=== PATIENT | female | born 1945 | race Caucasian/White ===

== ENCOUNTER → 2016-06-11 | Outpatient (CLI) | payer MEDICARE, BC ==
--- NOTE | 2016-06-11 13:25 | MM ---
Reason for exam: screening (asymptomatic). Last mammogram was performed 1 year and 5 months ago. History: Patient is postmenopausal. Family history of breast cancer in aunt at age 40. Benign right mammotome panel of the right breast, January 12, 2006. Taking estrogen for 20 years beginning at age 49. Taking progesterone for 20 years beginning at age 49. Physical Findings: A clinical breast exam by your physician is recommended on an annual basis and results should be correlated with mammographic findings. MG Screening Mammo w CAD Bilateral CC and MLO view(s) were taken. Prior study comparison: January 24, 2015, bilateral MG screening mammo w CAD. November 08, 2012, bilateral digital screening mammo w/CAD. The breast tissue is heterogeneously dense. This may lower the sensitivity of mammography. Finding #1: There is a 10 mm indistinct oval mass in the anterior position of the left breast. Finding #2: There are typically benign dystrophic, round calcifications in both breasts. Focal asymmetry right middle depth. ASSESSMENT: Incomplete: need additional imaging evaluation, BI-RAD 0 RECOMMENDATION: Special view mammogram of both breasts. [facility] will attempt to contact patient to return for supplemental views.
--- NOTE | 2016-06-11 19:17 | WWHP ---
DATE OF SERVICE: 06/11/2016 CHIEF COMPLAINT: The patient is here for her routine gynecologic exam and mammogram. HISTORY OF PRESENT ILLNESS: This is a 70-year-old G5, P4-0-1-4 with an LMP of 1994. The patient states it has been about 5 to 6 years since her last Pap smear. She has been taking HRT that has been prescribed by her primary care physician Dr. Centeno. She says she has taken this for about 20 years. She tried to wean off of this in the past but developed hot flashes and depression. The patient states she had a small amount of pink spotting in February of this year. She stopped the HRT for about 2 weeks. The spotting was very brief and light. She states she has not had any bleeding since then. She did resume her HRT. She had a small amount of cramping around the time of the spotting as well. PAST MEDICAL HISTORY: 1. Type 2 diabetes. 2. Chronic hypertension. 3. Arthritis. 4. Asthma. MEDICATIONS: 1. Hydrochlorothiazide 25 mg daily. 2. Losartan 100 mg daily. 3. Estradiol 1 mg daily. 4. Progesterone 2.5 mg daily. 5. She is temporarily taking Augmentin 875 mg b.i.d., which she last took this morning. 6. She also takes many supplements and eojd-stu-imhelvu medications, including probiotics niacin, chromium, cinnamon, zinc, lutein, Cholestoff, magnesium, super vitamin B complex, Osteo Bi-Flex, tumeric, vitamin D3 5000 units daily, Cetirizine 10 mg daily p.r.n., omega-3 supplement, aspirin 81 mg 2 daily, and krill daily. Please see her written medication list for doses. ALLERGIES: BACTRIM and ZESTORETIC. PAST SURGICAL HISTORY: 1. Left hip surgery 2014. 2. Appendectomy 1989. 3. Cholecystectomy 1988. 4. Vein ligation surgery in 1987. 5. Cyst removed from the right breast 1968. 6. Tubal ligation in 1974. 7. Colonoscopy 2013. PAST OB HISTORY: Four vaginal deliveries and one spontaneous . PAST LAW TUTOR HISTORY: She has no history of STDs. She has been menopausal since 1994 and has been on HRT since the late . SOCIAL HISTORY: She quit smoking in 1996. She has about 2 to 3 alcoholic drinks per year and denies drug use. She has been since 1962. She is not sexually active. 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 FAMILY HISTORY: Aunt had breast cancer and another aunt had bowel cancer. Mother had CHF and father had hypertension. REVIEW OF SYSTEMS: She believes she has gained about 25 pounds over the last year. She denies respiratory, cardiac or GI problems. She denies maltreatment or falling. : She denies any significant problems with urinary leakage but states she does get urinary tract infections fairly frequently. PHYSICAL EXAM: Blood pressure 132/78. Height 5 feet 7 inches. Weight 261 pounds. Temperature 96.4, pulse 84. This is a well-developed, heavyset white female who is alert and oriented x3, in no acute distress. HEENT is within normal limits. NECK: Supple without mass or thyromegaly. CHEST AND LUNGS: Clear to auscultation. HEART: Regular rate and rhythm. Breasts are without mass or discharge. Axillary exam is negative for adenopathy. BACK: Negative for CVA tenderness. ABDOMEN: Obese, soft, nontender, without palpable masses. PELVIC EXAM: External genitalia reveals mild atrophy without lesions. Cervix and vagina reveal mild atrophy without lesions. There is no unusual discharge and no blood in the vagina upon initial inspection. A small amount of blood was noted upon doing the endocervical brushing for her Pap smear. There was no active bleeding. There was no cervical motion tenderness. There was no significant prolapse. The uterus is midposition, multiparous, nongravid size and nontender. There are no palpable adnexal masses or tenderness. Rectovaginal exam is negative for mass or tenderness and is negative for occult blood. EXTREMITIES: Nontender. IMPRESSION: 1. A 70-year-old menopausal female, on HRT. 2. Small postmenopausal bleeding episode approximately 3 months ago. PLAN: 1. Pap smear was performed. 2. Self breast examination was discussed. 3. Mammogram will be done today. 4. We had a long discussion regarding her postmenopausal bleeding. I stressed the importance of discontinuing the HRT. 5. The patient will be scheduled for pelvic ultrasound and endometrial biopsy to further evaluate the postmenopausal bleeding. 6. She states she had a normal bone density test done a few years ago. Will plan on repeating this next year. 7. She has not gotten flu shots in the past but states she will probably get one this upcoming fall. 8. She will return in one year and p.r.n.
--- NOTE | 2016-06-16 08:10 | BD ---
EXAMINATION TYPE: MG DEXA axial skeleton. DATE OF EXAM: 06/11/2016 10:02 AM COMPARISON: NONE CLINICAL HISTORY: Height: 5 FT 6 3/4 IN Weight: 258 FRAX RISK QUESTIONS: Alcohol (3 or more units per day): YES Family History (Parent hip fracture): NO Glucocorticoids (More than 3mos): NO (Ex: prednisone, prednisolone, methylprednisolone, dexamethasone, and hydrocortisone). History of Fracture in Adulthood: NO Secondary Osteoporosis: 1. Type 1 Diabetes: NO 2. Hyperthyroidism: NO 3. Menopause before 45: NO 4. Malnutrition: NO 5. Chronic liver disease: NO Rheumatoid Arthritis: NO Current Tobacco Use: NO RISK FACTORS HISTORY OF: Surgery to Spine/Hip(right/left)/Wrist (right/left): LT HIP REPLACEMENT When: 2014 Family History of Osteoporosis: YES Drink Alcohol: YES Active: YES Postmenopausal woman: AGE 49 If Premenopausal, do you have irregular periods: Take estrogen and/or progesterone medications: YES How long: SINCE AGE 49 Lost more than 2 inches in height since high school: YES MEDICATIONS: Additional Medications: LOSARTIN, HYDROCHLOROTHIAZIDE,ESTRACE, PROGESTIN Additional History: EXAM MEASUREMENTS: Bone mineral densitometry was performed using the [employer] System. Bone mineral density as measured about the Lumbar spine is: ----- L1-L4(G/cm2): 1.584 T Score Values are as follows: ----- L2: 1.8 ----- L3: 3.9 ----- L4: 4.5 ----- L1-L4: 3.4 PREV DONE AT [facility] Bone mineral density about the R hip (g/cm2): 1.266 T Score values are as follows: -----R Neck: 1.6 -----R Intertrochanter: 2.9 PREVIOUS DONE AT [facility] IMPRESSION: Normal (Values between +1 and -1 indicate normal bone mass) CHARLES HIPS AND SPINE NOTE: T-SCORE=SD OF THE YOUNG ADULT MEAN.
== END ==
LOC: WWCWWP 08:18
PROVIDERS: ATTEND Obstetrics & Gynecology
DX: Z12.31 Encounter for screening mammogram for malignant neoplasm of breast (principal); Z78.0 Asymptomatic menopausal state
CPT/HCPCS: 77080; G0202

== ENCOUNTER → 2016-06-18 | Outpatient (CLI) | payer MEDICARE, BC ==
--- NOTE | 2016-06-18 19:18 | WWPCN ---
DATE OF PROCEDURE: 06/18/2016 PRE-PROCEDURE DIAGNOSIS: Postmenopausal bleeding. POST-PROCEDURE DIAGNOSIS: Postmenopausal bleeding. PROCEDURE: Endometrial biopsy. SURGEON: Archie Lawton M.D. ANESTHESIA: None. BRIEF DESCRIPTION OF FINDINGS: The uterus is multiparous, nongravid size. The cervix is multiparous. The uterus sounded to 9.5 cm. A small amount of tissue was obtained for pathological examination. BRIEF HISTORY AND INDICATIONS: This was a 70-year-old G5, P4-0-1-4 with a last normal menstrual period of 1994. The patient had been taking HRT prescribed by her primary care physician. She has been on HRT for about 20 years. In February she developed light vaginal spotting, and this stopped after she discontinued the HRT. She resumed HRT after 2 weeks. She has not had any bleeding since February. PROCEDURE: The endometrial biopsy procedure as well as possible risks and complications with the procedure were reviewed with the patient. All of her questions were answered. The patient was placed in the lithotomy position. Bimanual examination revealed a multiparous uterus and there were no palpable adnexal masses or tenderness. Speculum was inserted into the vagina. The cervix appeared normal. Betadine was used to prep the cervix and vagina. The endometrial biopsy instrument was placed to the fundus and measured 9.5 cm. Insertion was uncomplicated. Negative pressure was applied and back and forth rotating motion was used. A small amount of tissue was obtained and sent for pathological examination. The patient tolerated the procedure well. The estimated blood loss was less than 1 mL. There were no complications. Specimen sent included endometrial tissue. Post-procedure instructions were given to the patient. She was instructed to call if she has problems or go to the emergency room if she is having immediate problems needing attention. The patient denies any postoperative discomfort.
--- NOTE | 2016-06-19 09:10 | MM ---
Reason for exam: additional evaluation requested from abnormal screening. Last mammogram was performed less than 1 month ago. History: Patient is postmenopausal. Family history of breast cancer in aunt at age 40. Benign right mammotome panel of the right breast, January 12, 2006. Taking estrogen for 20 years beginning at age 49. Taking progesterone for 20 years beginning at age 49. Physical Findings: Nurse Summary: 1cm nodule in the left breast at 9 o'clock (nurse matilda). MG Work Up Mamm w CAD BILAT Bilateral CC, MLO, and LM view(s) were taken. Prior study comparison: June 11, 2016, bilateral MG screening mammo w CAD. January 24, 2015, bilateral MG screening mammo w CAD. The breast tissue is heterogeneously dense. This may lower the sensitivity of mammography. Finding: There is suspicious, high, spiculated architectural distortion located 6 cm from the nipple in the 6 o'clock middle position of the right breast, for which an ultrasound is recommended. Mammogram negative at BB marker in th left breast. New finding since June 11, 2016 and January 24, 2015. These results were verbally communicated with the patient and result sheet given to the patient on 06/18/16. ASSESSMENT: Incomplete: need additional imaging evaluation, BI-RAD 0 RECOMMENDATION: Ultrasound of both breasts.
--- NOTE | 2016-06-19 09:19 | USB ---
Reason for exam: additional evaluation requested from abnormal screening. History: Patient is postmenopausal. Family history of breast cancer in aunt at age 40. Benign right mammotome panel of the right breast, January 12, 2006. Taking estrogen for 20 years beginning at age 49. Taking progesterone for 20 years beginning at age 49. US Breast Workup Limited CHARLES Right breast ultrasound demonstrates a 0.6 x 0.6 x 0.6cm solid lesion at 6 o'clock 8cm from nipple for which a biopsy is recommended and a 0.7 x 0.2 x 1.5cm cystic, ductal lesion at 8 o'clock. Left breast ultrasound demonstrates a 0.3 x 0.5 x 0.4cm mixed lesion at 12 o'clock for which a biopsy is recommended, a 0.6 x 0.6 x 0.6cm solid lesion at 3 o'clock 9cm from nipple for which a biopsy is recommended and a 0.4 x 0.3 x 0.3cm mixed lesion at 3 o'clock. These results were verbally communicated with the patient and result sheet given to the patient on 06/18/16. ASSESSMENT: Suspicious, BI-RAD 4 RECOMMENDATION: Surgical consultation and ultrasound core biopsy of both breasts. Called Dr. Lawton with mammographic findings and has scheduled an appointment for the patient for 07/17/16 at 9:[address] Romano. Biopsy scheduled for 06/27/16. PRELIMINARY REPORT CALLED AND FAXED TO DR. ROMANO ON 07/19/16 AT 300/TP.
== END | disposition home or self-care (01) ==
LOC: RADMAMWWP 13:01
PROVIDERS: ATTEND Obstetrics & Gynecology
DX: R92.8 Other abnormal and inconclusive findings on diagnostic imaging of breast (principal)
CPT/HCPCS: 76642; G0204; 88305

== ENCOUNTER → 2016-06-18 | Day surgery (SDC) | payer MEDICARE, BC | LOC: WWCWWP 11:42 | PROVIDERS: ATTEND Obstetrics & Gynecology | DX: Z53.9 Procedure and treatment not carried out, unspecified reason (principal) ==

== ENCOUNTER → 2016-06-27 | Day surgery (SDC) | payer MEDICARE, BC ==
[~2016-06-27] MED LIST: BACITRACIN OINT 1 EACH PACKET TOPICAL ONE; LIDOCAINE 1%-EPI 1:100,000 20 ML VIAL ONE
--- NOTE | 2016-06-27 10:59 | MM ---
EXAMINATION TYPE: US biopsy breast VAD RT DATE OF EXAM: 06/27/2016 10:53 AM CLINICAL HISTORY: R92.8 Abnormal Mammogram. TECHNIQUE: Ultrasound guided core biopsy of right breast. COMPARISON: Previous ultrasound dated 06/18/2016. FINDINGS: The procedure of ultrasound guided core biopsy was explained to the patient. Benefits, alternatives, and risks were discussed. An informed consent was then obtained. The left breast was scanned thoroughly. The lesions previously described or clusters of cysts. No solid lesion was identified. No biopsy was performed. The patient was placed in supine positioning for imaging and for the procedure. The overlying skin was prepped and draped in usual sterile fashion. Lidocaine buffered with bicarbonate was used as anesthetic into the skin and subcutaneous tissue up to area of concern in the right breast. A akhil was made with surgical scalpel. Under ultrasound guidance, a 12-gauge vacuum assisted biopsy gun device was used to obtain 8 core samples. Following this, a biopsy clip was left in lesion. The patient tolerated the procedure well. There was excessive bleeding at the end of the procedure. At this point, the patient informed us that she had not discontinued her aspirin prior to the study. This caused a very large hematoma in the right breast. The patient was kept in the radiology department for short stay after the procedure and then discharged home in stable condition. Pathology is pending. A postprocedure mammogram of the right breast demonstrated a large hematoma. Clip placement. Adequate. IMPRESSION: 1. SUCCESSFUL ULTRASOUND-GUIDED BIOPSY OF THE RIGHT BREAST. 2. EXCESSIVE RIGHT BREAST HEMATOMA SECONDARY TO NOT DISCONTINUING THE PATIENT'S ASPIRIN. Pathology Results: Malignant BREAST, RIGHT, ULTRASOUND GUIDED CORE BIOPSY: INVASIVE CARCINOMA, PENDING SPECIAL STAINS. ADDENDUM REPORT BREAST, RIGHT, ULTRASOUND CORE BIOPSY: INVASIVE DUCTAL CARCINOMA. Recommendation Surgical consult of the right breast. [facility]
== END ==
LOC: RADUSWWP 07:50
PROVIDERS: ATTEND Surgery
DX: C50.911 Malignant neoplasm of unspecified site of right female breast (principal); R92.8 Other abnormal and inconclusive findings on diagnostic imaging of breast; Z88.2 Allergy status to sulfonamides; Z88.8 Allergy status to other drugs, medicaments and biological substances
CPT/HCPCS: 88305; 88342; 19083; G0206; A4648

== ENCOUNTER → 2016-06-30 | Outpatient (CLI) | payer MEDICARE, BC ==
--- NOTE | 2016-06-30 14:27 | US ---
EXAMINATION TYPE: US pelvic complete DATE OF EXAM: 06/30/2016 1:16 PM COMPARISON: NONE CLINICAL HISTORY: N95.0 METRORRHAGIA. Patient stated had vaginal spotting in February at time of bladd er infection with low platelet count and vaginal bleeding stopped after 2 days on antibiotic; has bee n taking HRT x years; just had endometrial biopsy last week by Dr. Lawton and was told results are wit hin normal limits. Patient stated reason for US was to assess ovaries and uterus per Dr Lawton; . TECHNIQUE: Transabdominal (TA) Date of LMP: EXAM MEASUREMENTS: Uterus: 11.2 x 3.7 x 4.7 cm Endometrial Stripe: 7.4mm Right Ovary: 2.1 x 2.0 x 1.1 cm Left Ovary: 1.6 x 1.5 x 1.3 cm 1. Uterus: Anteverted 2. Endometrium: thickness is wnl for patient on HRT as thickness is <0.8cm. 3. Right Ovary: wnl 4. Left Ovary: wnl 5. Bilateral Adnexa: wnl 6. Posterior cul-de-sac: small amount of free fluid in posterior CDS = 1.7 x 1.6 x 0.9cm. IMPRESSION: 1. Small amount of free fluid.
== END | disposition home or self-care (01) ==
LOC: RADUSWWP 12:47
PROVIDERS: ATTEND Obstetrics & Gynecology
DX: R18.8 Other ascites (principal); N95.0 Postmenopausal bleeding
CPT/HCPCS: 76856

== ENCOUNTER → 2016-08-06 | Day surgery (SDC) | payer MEDICARE, BC ==
[2016-08-06 09:01] VITALS: RESP 16; BMI 41.4
[2016-08-06 10:08] VITALS: BP 171/87; PULSE 76; TEMP 97.1
--- NOTE | 2016-08-06 10:14 | USB ---
EXAMINATION TYPE: US biopsy breast VAD LT, MG diagnostic mammo LT wo CAD DATE OF EXAM: 08/06/2016 CLINICAL HISTORY: Z85.3 Personal Hx Breast Ca. Newly diagnosed right breast cancer on biopsy June 27. Abnormal MRI and ultrasound. TECHNIQUE: Ultrasound guided core biopsy of left breast with clip placement and follow-up two-view mammogram. COMPARISON: Outside MRI brain July 28, 2016. Prior ultrasound June 18, 2016. FINDINGS: The procedure of ultrasound guided core biopsy was explained to the patient. Benefits, alternatives, and risks were discussed. An informed consent was then obtained. The patient was placed in supine positioning for imaging and for the procedure. Outside MRI was reviewed. There is 1 cm enhancing lesion anterior depth left breast well-defined may be slightly medial and superior to the nipple which is difficult to distinctly visualize which does not definitively correlate with prior ultrasound abnormality. Preprocedure ultrasound shows vague heterogeneous area 12:00 position zone A. near nipple which is targeted. The overlying skin was prepped and draped in usual sterile fashion. Lidocaine was used as anesthetic into the skin. Lidocaine with epinephrine is used as anesthetic into the deeper tissue up to area of concern in the left breast. A akhil was made with surgical scalpel. Under ultrasound guidance, a 12-gauge vacuum assisted biopsy gun device was used to obtain 4 core samples. Following this, a biopsy clip was left in lesion. The patient tolerated the procedure well without any immediate complication. The patient was kept in the radiology department for short stay after the procedure and then discharged home in stable condition. Postprocedure mammogram shows successful deployment of clip approximately 2 cm from the nipple slight upper aspect. IMPRESSION: Successful, uncomplicated ultrasound guided core biopsy of area of concern in the left breast, full pathology results to follow. Low index of suspicion. Would consider repeat MRI with possible MRI sampling if pathology comes back benign as uncertain if ultrasound correlates with MRI abnormality. Pathology Results: High Risk BREAST, LEFT, CORE BIOPSY: FIBROCYSTIC CHANGES INCLUDING CYSTS AND CYST WALL WITH FIBROSIS, ADENOSIS, RARE MICROCALCIFICATIONS AND APOCRINE METAPLASIA. FOCAL ATYPICAL LOBULAR HYPERPLASIA (ALH), SEE NOTE. Recommendation Surgical consult of the left breast. [facility]
--- NOTE | 2016-08-06 11:05 | USB ---
Reason for exam: additional evaluation requested from abnormal screening. History: Patient is postmenopausal and has history of breast cancer at age 70. Family history of breast cancer in aunt at age 40. Malignant US biopsy breast VAD RT of the right breast, June 27, 2016. Benign right mammotome panel of the right breast, January 12, 2006. Taking estrogen for 20 years beginning at age 49. Taking progesterone for 20 years beginning at age 49. Physical Findings: Nurse Summary: right breast bruising with palpable area at 6-9 o'clock, movable , painful, left breast palpable at 3 o'clock, movable, 0.5 x 0.5cm (nurse ts). US Breast LT Left breast ultrasound includes all four quadrants, the retroareolar region and axilla. Finding demonstrates several oval, hypoechoic lesions measuring 0.3 x 0.3 x 0.4cm at 3 o'clock, 0.7 x 0.3 x 0.7cm at 5 o'clock, 0.4 x 0.3 x 0.4cm at 11 o'clock and a 1.6 x 2.6cm oval, hypoechoic, cyst cluster with calcifications at 12 o'clock. These results were verbally communicated with the patient and result sheet given to the patient on 08/06/16. ASSESSMENT: Suspicious, BI-RAD 4 RECOMMENDATION: Ultrasound core biopsy of the left breast. (MRI ABNORMALITY) TERESAD
== END ==
LOC: RADUSWWP 07:28
PROVIDERS: ATTEND Surgery
DX: N60.12 Diffuse cystic mastopathy of left breast (principal); N60.22 Fibroadenosis of left breast; R92.0 Mammographic microcalcification found on diagnostic imaging of breast; N60.82 Other benign mammary dysplasias of left breast; N62 Hypertrophy of breast; R92.8 Other abnormal and inconclusive findings on diagnostic imaging of breast; R92.1 Mammographic calcification found on diagnostic imaging of breast; C50.911 Malignant neoplasm of unspecified site of right female breast; Z78.0 Asymptomatic menopausal state; Z80.3 Family history of malignant neoplasm of breast
CPT/HCPCS: 88305; 88342; 88341; 19083; 76641; G0206; A4648; J2001

== ENCOUNTER → 2016-08-07 | Outpatient (CLI) | payer MEDICARE, BC ==
--- NOTE | 2016-08-08 11:02 | XR ---
EXAMINATION TYPE: XR knee complete RT DATE OF EXAM: 08/07/2016 COMPARISON: NONE HISTORY: Knee pain TECHNIQUE: Three-view right knee FINDINGS: No acute fractures are evident. Joint spaces are preserved. No joint effusion is evident. A nterior superior patellar spur is present. Small posterior superior and posterior inferior patellar s purs are present. Surgical clips are within the proximal soft tissues medial to the knee. IMPRESSION: 1. No acute osseous abnormality. 2. Minimal degenerative change medial compartment right knee
== END | disposition home or self-care (01) ==
LOC: RADXRYALE 16:12
PROVIDERS: ATTEND Internal Medicine
DX: M25.861 Other specified joint disorders, right knee (principal); M25.561 Pain in right knee

== ENCOUNTER 2016-10-15 06:39 | Day surgery (SDC) | payer MEDICARE, BC ==
[2016-10-09 16:56] VITALS: BMI 38.9
[~2016-10-15 06:39] MED LIST changes: +ALPRAZolam 0.25 MG TAB PO PRN; -BACITRACIN OINT 1 EACH PACKET TOPICAL ONE; +DEXAMETHASONE SOD PHOSPHATE 10 MG/ML 1 ML VIAL IV ONE; +HEPARIN SODIUM,PORCINE 5,000 UNIT/ML 1 ML VIAL SQ ONE; +HYDROmorphone 1 MG/ML 1 ML SYRINGE IVP PRN; +LACTATED RINGERS 1,000 ML IV SCH; -LIDOCAINE 1%-EPI 1:100,000 20 ML VIAL ONE; +ONDANSETRON 4 MG/2 ML VIAL IVP ONE; +Pre Op ABX Message 1 EACH MISC MISCELLANE ONE
[2016-10-15] MEDS ORDERED: LIDOCAINE 1% 20 ML VIAL (10MG/ML) FOR IV START INTRADERMA ONE (07:19)
[2016-10-15 07:30] LABS: Glucose,Whole Blood 157 mg/dL (75-99)
--- NOTE | 2016-10-15 07:44 | P.GSHP ---
History of Present Illness H&P Date: 10/15/16 Chief Complaint: Right breast cancer, abnormal left mammogram Patient is a 6-year-old female who is well known to service. She underwent prior right breast core biopsy which revealed a focus of invasive ductal cancer. The patient was seen by oncology and underwent genetic testing which revealed a mutation of unknown significance. The patient unfortunately did develop a large postoperative right breast hematoma. Improved fairly dramatically. As part of her workup and MRI was performed which actually lead to 2 separate biopsies both showing atypical hyperplasia both warranting wire localization biopsies. Patient's been seen by radiation oncology as well preoperatively with plans for postoperative right breast radiation. At the time of the recent MRI of the size of the hematoma in the right breast was improved in the proximity of the clip to the known breast cancer was fairly close Past Medical History Past Medical History: Asthma, Cancer, Diabetes Mellitus, Deep Vein Thrombosis ( DVT), GERD/Reflux, Hyperlipidemia, Hypertension, Osteoarthritis (OA), Sleep Apnea/CPAP/BIPAP Additional Past Medical History / Comment(s): no cpap used, hiatal hernia, using a cane-balance off, hx heart murmer, poor circulation, hiatal hernia, diverticulosis, scabs on legs from itching, diet control diebetic, had vaginal bleeding 02/2016, recent dx breast cancer History of Any Multi-Drug Resistant Organisms: MRSA Date of last positivie culture/infection: 05/25/11 MDRO Source:: nasal passage, face Past Surgical History: Appendectomy, Breast Surgery, Cholecystectomy, Heart Catheterization, Joint Replacement, Tubal Ligation Additional Past Surgical History / Comment(s): quinton vein stripping, cyst rt breast-benign, Right breast u/s core-malignant 06/2016, left hip replacement Past Anesthesia/Blood Transfusion Reactions: Motion Sickness Additional Past Anesthesia/Blood Transfusion Reaction / Comment(s): motion sickness as child Smoking Status: Former smoker - Past Family History Father Family Medical History: Pulmonary Embolus Mother Family Medical History: No Reported History Medications and Allergies Home Medications Medication Instructions Recorded Confirmed Type Hydrochlorothiazide 25 mg PO QAM 07/27/14 10/15/16 History Losartan Potassium 100 mg PO QAM 07/27/14 10/15/16 History Cetirizine HCl [Zyrtec] 10 mg PO DAILY PRN 10/02/14 10/15/16 History Krill Oil 500 mg PO DAILY 10/02/14 10/09/16 History Magnesium 200 mg PO DAILY 10/02/14 10/09/16 History Niacin 500 mg PO DAILY 10/02/14 10/09/16 History Zinc Gluconate [Zinc] 50 mg PO DAILY 10/02/14 10/09/16 History Allergies Allergy/AdvReac Type Severity Reaction Status Date / Time lisinopril [From Zestoretic] Allergy Severe Anaphylaxis Verified 10/09/16 16:40 sulfamethoxazole Allergy Severe Anaphylaxis Verified 10/09/16 16:40 [From Bactrim] trimethoprim [From Bactrim] Allergy Severe Anaphylaxis Verified 10/09/16 16:40 atenolol [From Tenormin] Allergy Rash/Hives, Verified 10/09/16 16:41 itchiing escitalopram oxalate Allergy syncopal Verified 10/09/16 16:40 [From Lexapro] episode metformin [From Janumet] Allergy Diarrhea Verified 10/09/16 16:41 metoprolol [From Lopressor] Allergy Rash/Hives Verified 10/15/16 07:04 sitagliptin [From Janumet] Allergy Diarrhea Verified 10/09/16 16:41 venlafaxine HCl Allergy Chest Pain Verified 10/09/16 16:40 [From Effexor] nifedipine [From Procardia] AdvReac Severe drop in BP Verified 10/09/16 16:40 simvastatin [From Zocor] AdvReac Unknown Verified 10/09/16 16:40 pollen Allergy Unknown Uncoded 10/09/16 16:40 tiger g[place] shrimp Allergy Rash/Hives Uncoded 10/09/16 17:09 Surgical - Exam Vital Signs Temp Pulse Resp BP Pulse Ox 97.4 F L 86 18 172/85 95 10/15/16 07:01 10/15/16 07:01 10/15/16 07:01 10/15/16 07:01 10/15/16 07:01 Physical exam: General: Well-developed, well-nourished HEENT: Normocephalic, sclerae nonicteric Abdomen: Nontender, nondistended Breast: Right breast hematoma smaller in size, no adenopathy Extremities: No edema Neuro: Alert and oriented Results - Labs Abnormal Lab Results - Last 24 Hours (Table) 10/15/16 Range/Units 07:13 POC Glucose (mg/dL) 157 H (75-99) mg/dL Assessment and Plan (1) Cancer of right breast Narrative/Plan: Will proceed with right breast lumpectomy with sentinel lymph node biopsy. Additionally 2 separate wire localization biopsies in the left breast will be performed as well. Risks of bleeding, infection, recurrence, positive margin, potential need for additional surgery, nerve injury, dimpling, scarring, pain, and anesthesia-related complications were discussed. She understands and wishes to proceed. Status: Acute
[2016-10-15] MEDS ORDERED: LIDOCAINE 1% INJ 10MG/ML (20 ML MDV) SQ ONE ×3 (08:46→10:20)
[2016-10-15] MEDS ORDERED: METHYLENE BLUE 10 MG/ML 1 ML VIAL INJ ONE ×2 (09:31→11:31)
[2016-10-15] MEDS ORDERED: SODIUM BICARB 4% 5 ML VIAL (0.48 MEQ/ML) MISCELLANE ONE (10:20)
--- NOTE | 2016-10-15 10:53 | NM ---
EXAMINATION TYPE: NM sentinel node injection DATE OF EXAM: 10/15/2016 COMPARISON: NONE HISTORY: Right-sided breast cancer with request for preoperative sentinel lymph node injection. TECHNIQUE AND FINDINGS: The procedure of sentinel lymph node injection was explained to the patient. The benefits, alternatives, and risks were discussed. An informed consent was then obtained. Overlying skin is cleaned with sterile alcohol. Lidocaine buffered with bicarbonate was used as anes thetic into the skin and subcutaneous tissue surrounding the nipple. Following this, 550 uCi Tc 99m Filtered Sulfur Colloid was injected into 4 equivalent doses at 12, 3, 6, and 9:00 position surroundi ng the right nipple intradermally. The injection sites were massaged by nuclear reactor operator for 10 minutes after injection. T he patient tolerated the procedure well without any immediate complication. The patient was kept in the radiology department for short stay after the procedure and then taken to surgery for surgical pr ocedure what is presumed intraoperative gamma probe will be used for sentinel lymph node detection. IMPRESSION: Right breast radiotracer injection for sentinel node localization as above.
[2016-10-15] MEDS ORDERED: MIDAZOLAM 2 MG/2 ML VIAL ONE (11:02)
[2016-10-15] MEDS ORDERED: LIDOCAINE 1% INJ 10MG/ML (20 ML MDV) ONE (11:02)
[2016-10-15] MEDS ORDERED: PROPOFOL 10 MG/ML 20 ML VIAL IV ONE (11:02)
[2016-10-15] MEDS ORDERED: fentaNYL (PF) 50 MCG/ML 2 ML AMP ONE (11:02)
[2016-10-15] MEDS ORDERED: SUCCINYLCHOLINE CHLORIDE 100 MG/5 ML SYR IV ONE (11:02)
[2016-10-15] MEDS ORDERED: LABETALOL 5 MG/ML VIAL MDV ONE (11:02)
[2016-10-15] MEDS ORDERED: SODIUM CHLORIDE 0.9% 50 ML with ceFAZolin 2,000 MG IV ONE ×2 (11:20)
[2016-10-15] MEDS ORDERED: SODIUM CHLORIDE 0.9% 1,000 ML IV ONE (11:30)
[2016-10-15] MEDS ORDERED: NALOXONE 0.4 MG/ML 1 ML VIAL IV PRN (13:22)
[2016-10-15] MEDS ORDERED: ACETAMINOPHEN TAB 325 MG TAB PO PRN (13:22)
[2016-10-15] MEDS ORDERED: traMADol 50 MG TAB PO PRN (13:22)
--- NOTE | 2016-10-15 13:27 | P.OP ---
Date of Procedure: 10/15/16 Preoperative Diagnosis: Postoperative Diagnosis: Procedure(s) Performed: PREOPERATIVE DIAGNOSIS: Right breast cancer, abnormal left mammogram 2 POSTOPERATIVE DIAGNOSIS: Same PROCEDURE: Right Breast wire localization lumpectomy with sentinel lymph node biopsy and BioSorb placement, left breast wire localization 2 SURGEON: Juan Antonio EBL: Minimal ANESTHESIA: General COMPLICATIONS: None OPERATIVE PROCEDURE: Patient was placed on the operating room table in the supine position. The chest was prepped and draped in the usual sterile fashion. 2 mL of methylene blue was injected into the right subareolar space. The breast was then massaged for 5 minutes. The left breast was first addressed. A curvilinear incision was made in the periareolar region wires were brought out through this incision site. The breast tissue around the tips of the wires was removed in one portion and sent to x-ray. Both clips were present within the specimen. The subcutaneous tissues were closed using 3-0 Vicryl sutures and the skin was closed using a running 4-0 Monocryl stitch. The right axilla was addressed at that time. The hot spot in the right axilla was identified. A small curvilinear incision was made using the scalpel. Dissection down through the saphenous tissues took place using electrocautery. Using the neoprobe I identified a total of 4 sentinel lymph nodes. 2 of these were blue in color. These were all removed and sent to pathology for close examination. Frozen sections from these lymph nodes were negative for metastatic disease. No bleeding was seen. The subcutaneous tissues were closed using 3-0 Vicryl sutures. The skin was closed using 4-0 Monocryl sutures. The wire entrance site was then addressed. This was present at the 10 :00 location. A curvilinear incision was made adjacent to the wire entrance site. I followed the wire down into the breast tissue. 2 lumpectomy specimens were removed. It appeared that I was initially deep to the wire and started to come across our lumpectomy specimen when I encountered the wire. This portion was removed and the medial aspect of the specimen was labeled using yellow ink. The breast tissue around the tip of the wire was then removed as a second lumpectomy specimen and labeled on all sides with the appropriate colors. This was sent to pathology and the clip was present within the lumpectomy specimen. A 3 x 4 cm BioSorb device was sutured to the breast tissues at the site of lumpectomy. The subcutaneous tissues were then closed over this using 3-0 Vicryl sutures and the skin was closed using a running 4-0 Monocryl stitch. Steri-Strips and sterile dressings were applied. DISPOSITION: Stable to recovery room Implants: Indications for Procedure: Operative Findings: Description of Procedure:
[2016-10-15 13:29] VITALS: TEMP 97.2
[2016-10-15 13:38] LABS: Glucose,Whole Blood 245 mg/dL (75-99)
[2016-10-15] MEDS ORDERED: INSULIN LISPRO (humaLOG) 300 UNIT/3 ML VIAL SQ ONE (13:56)
[2016-10-15] MEDS ORDERED: HYDROmorphone 1 MG/ML 1 ML SYRINGE IVP ONE (14:00)
[2016-10-15] MEDS ORDERED: LABETALOL 5 MG/ML VIAL MDV IVP ONE (14:05)
[2016-10-15] MEDS ORDERED: ONDANSETRON 4 MG/2 ML VIAL IVP ONE (14:12)
[2016-10-15] MEDS ORDERED: LABETALOL SYRINGE 5 MG/ML IVP ONE (14:18)
[2016-10-15 14:48] VITALS: RESP 16
[2016-10-15 15:01] LABS: Glucose,Whole Blood 225 mg/dL (75-99)
[2016-10-15 15:54] VITALS: BP 135/77; PULSE 73
--- NOTE | 2016-10-16 09:58 | MM ---
EXAMINATION TYPE: MG surgical specimen LT, MG surgical specimen RT, MG surgical specimen LT, MG pre op loc each addl LT, MG pre op needle loc LT, MG pre op needle loc RT DATE OF EXAM: 10/15/2016 COMPARISON: NONE CLINICAL HISTORY: Personal history of right-sided breast cancer and two high risk left breast lesions. Preoperative request for needle localization. TECHNIQUE: Three Site needle localization with wire placement and surgical excision of area of concern in both breasts. FINDINGS: The procedure of needle localization with wire placement and than surgical excision was explained to the patient. Benefits, alternatives, and risks were discussed. An informed consent was then obtained. Right Breast The shortest pathway for procedure was chosen. Shortest pathway was CC from above approach. The overlying skin was prepped and draped in usual sterile fashion. Lidocaine buffered with bicarbonate was used as anesthetic into the skin and subcutaneous tissue up to the level of area of concern. A 9 cm needle was used. It was placed via a CC from above approach under mammographic guidance. Subsequent 90 degrees mammogram show the needle to be in satisfactory position relative to the targeted area, within the mammographic mass adjacent to the ribbon biopsy marker. At this point, wire was placed and the needle was withdrawn. The wire was fixed to patient's skin. Images were marked for surgeon. Left Breast Site A: The shortest pathway for procedure was chosen. Shortest pathway was LM approach. The overlying skin was prepped and draped in usual sterile fashion. Lidocaine buffered with bicarbonate was used as anesthetic into the skin and subcutaneous tissue up to the level of area of concern. A 5 cm needle was used. It was placed via a approach under mammographic guidance. Subsequent 90 degrees mammogram show the needle to be in satisfactory position relative to the targeted area, posterior to the biopsy clip marked with a single BB. At this point, wire was placed and the needle was withdrawn. The wire was fixed to patient's skin. Images were marked for surgeon. Site B: The shortest pathway for procedure was chosen. Shortest pathway was LM approach. The overlying skin was prepped and draped in usual sterile fashion. Lidocaine buffered with bicarbonate was used as anesthetic into the skin and subcutaneous tissue up to the level of area of concern. A 5 cm needle was used. It was placed via a LM approach under mammographic guidance. Subsequent 90 degrees mammogram show the needle to be in satisfactory position relative to the targeted area, posterior to the ribbon clip marked with two BBs. At this point, wire was placed and the needle was withdrawn. The wire was fixed to patient's skin. Images were marked for surgeon. The patient tolerated the procedure well without any immediate complication. The patient was kept in the radiology department for short stay after the procedure and then taken to surgery for surgical excision. Targeted clips and mammographic mass as well as the wire are identified in specimen mammograms. The patient was kept in hospital for short stay after the procedure and then discharged home in stable condition. IMPRESSION: Successful, uncomplicated needle localization with wire placement and surgical excision of the right mammographic mass and bilateral biopsy markers, full pathology results to follow. Pathology Results: Malignant A. SENTINEL NODE, RIGHT #1; LYMPH NODE NEGATIVE FOR METASTASIS; CYTOKERATIN 7 AND RAMON IMMUNOPEROXIDASE STAINS ARE CONFIRMATORY (APPROPRIATE CONTROLS). B. SENTINEL NODE, RIGHT #2; LYMPH NODE NEGATIVE FOR METASTASIS; CYTOKERATIN 7 AND RAMON IMMUNOPEROXIDASE STAINS ARE CONFIRMATORY (APPROPRIATE CONTROLS). C. SENTINEL NODE, RIGHT #3; LYMPH NODE NEGATIVE FOR METASTASIS; CYTOKERATIN 7 AND RAMON IMMUNOPEROXIDASE STAINS ARE CONFIRMATORY (APPROPRIATE CONTROLS). D. SENTINEL NODE, RIGHT #4; LYMPH NODE NEGATIVE FOR METASTASIS; CYTOKERATIN 7 AND RAMON IMMUNOPEROXIDASE STAINS ARE CONFIRMATORY (APPROPRIATE CONTROLS). E. AND F. PENDING FIXATION. ADDENDUM REPORT E-F. BREAST, RIGHT AND LEFT, EXCISIONAL BIOPSY: PENDING CONSULTATION. SEE ADDENDUM/FINAL DIAGNOSIS. ADDENDUM REPORT RIGHT BREAST, LUMPECTOMY ([id number], E, 10/15/2016): INVASIVE DUCTAL CARCINOMA WITH LOBULAR FEATURES, MODIFIED MA KRAUS GRADE 3, EXTENDING CLOSE TO MULTIPLE MARGINS. BIOPSY SITE CHANGES. LEFT BREAST, LUMPECTOMY ([id number], F, 10/15/2016): LOBULAR CARCINOMA IN SITU, CLASSIC AND PLEOMORPHIC TYPES. LOW NUCLEAR GRADE DUCTAL CARCINOMA IN SITU INVOLVING AN INTRADUCTAL PAPILLOMA. PLEOMORPHIC LCIS AND DCIS EXTEND CLOSE TO MARGIN. BIOPSY SITE CHANGES. Recommendation Surgical consult of the left breast. ARLYN
== END 2016-10-15 16:31 | disposition home or self-care (01) ==
LOC: OR 06:39
PROVIDERS: ATTEND Surgery
DX: D05.12 Intraductal carcinoma in situ of left breast (principal); D24.2 Benign neoplasm of left breast; C50.911 Malignant neoplasm of unspecified site of right female breast; N62 Hypertrophy of breast; E11.9 Type 2 diabetes mellitus without complications; I10 Essential (primary) hypertension; E78.5 Hyperlipidemia, unspecified; G47.30 Sleep apnea, unspecified; Z86.718 Personal history of other venous thrombosis and embolism; J45.909 Unspecified asthma, uncomplicated; K21.9 Gastro-esophageal reflux disease without esophagitis; Z87.891 Personal history of nicotine dependence; Z79.899 Other long term (current) drug therapy; Z91.013 Allergy to seafood; Z88.2 Allergy status to sulfonamides; Z88.8 Allergy status to other drugs, medicaments and biological substances; Z91.09 Other allergy status, other than to drugs and biological substances
CPT/HCPCS: 88342; 88331; 88332; 88307; 88341; 76098 ×2; 19281; 19282 ×2; 38792; 19301; 38500; C1789; A9541; J2250; J1644; J1100; J2405; J2001; Q9968; J3010; J1170; J0690; J0330; J2704

== ENCOUNTER 2017-01-13 07:26 | Day surgery (SDC) | payer MEDICARE, BC ==
[2017-01-07 17:14] VITALS: BMI 37.7
--- NOTE | 2017-01-12 17:40 | P.GSHP ---
History of Present Illness H&P Date: 01/12/17 Chief Complaint: Bilateral breast cancer Patient is a 71-year-old female who is known to our service. She previously underwent right breast core biopsy of a 6 mm lesion seen on both mammogram and ultrasound. Biopsy revealed a poorly differentiated ductal carcinoma. She developed a large right breast hematoma following that. As part of her workup and MRI was performed which revealed 2 areas on the left breast showing atypical hyperplasia and wire localization biopsies of both lesions were advised. She suddenly underwent right breast lumpectomy with sentinel lymph node biopsy. She had a lobular growth pattern to her ductal cancer on the right with very close margins. 4 lymph nodes were identified and thankfully were benign. The wire localization biopsies on the left side revealed low- grade DCIS and pleomorphic LCIS with very close margins. She had BRCA testing which revealed a mutation of questionable significance. She has been seen during the course of her workup by oncology and radiation oncology. She was presented at our multidisciplinary breast tumor board. Given the close margins bilaterally in addition to the mutation identified on genetic workup the patient was felt to have a strong likelihood of recurrence and additional breast cancers. After further discussion it was decided to proceed with bilateral mastectomy. Patient is interested in breast reconstruction. She was seen by plastic surgery and bilateral tissue threader placement was agreed upon. Past Medical History Past Medical History: Asthma, Cancer, Diabetes Mellitus, Deep Vein Thrombosis ( DVT), GERD/Reflux, Hyperlipidemia, Hypertension, Osteoarthritis (OA), Sleep Apnea/CPAP/BIPAP Additional Past Medical History / Comment(s): no cpap used, hx heart murmur, poor circulation, hiatal hernia, diverticulosis, scabs on legs from itching, chronic nose bleeds, sinus infection, recent dx breast cancer, History of Any Multi-Drug Resistant Organisms: MRSA Date of last positivie culture/infection: 05/25/11 MDRO Source:: nasal passage, face Past Surgical History: Appendectomy, Breast Surgery, Cholecystectomy, Heart Catheterization, Joint Replacement, Tubal Ligation Additional Past Surgical History / Comment(s): quinton vein stripping, cyst rt breast-benign, Right breast u/s core-malignant 06/2016, left hip replacement Past Anesthesia/Blood Transfusion Reactions: Motion Sickness Additional Past Anesthesia/Blood Transfusion Reaction / Comment(s): motion sickness as child. "blood pressure drops during anesthesia" Smoking Status: Former smoker - Past Family History Father Family Medical History: Pulmonary Embolus Mother Family Medical History: Cancer Medications and Allergies Home Medications Medication Instructions Recorded Confirmed Type Losartan Potassium 100 mg PO QAM 07/27/14 01/07/17 History Cetirizine HCl [Zyrtec] 10 mg PO DAILY PRN 10/02/14 01/07/17 History Krill Oil 500 mg PO DAILY 10/02/14 01/07/17 History Magnesium 200 mg PO DAILY 10/02/14 01/07/17 History Niacin 500 mg PO DAILY 10/02/14 01/07/17 History Zinc Gluconate [Zinc] 50 mg PO DAILY 10/02/14 01/07/17 History Amoxicillin/Potassium Clav 1 tab PO Q12HR 01/07/17 01/07/17 History [Augmentin 875-125 Tablet] Empagliflozin [Jardiance] 10 mg PO DAILY 01/07/17 01/07/17 History [place]-3 Fatty Acids [[place]-3] 1,000 mg PO DAILY 01/07/17 01/07/17 History Triamterene-Hctz 37.5-25Mg 1 cap PO DAILY 01/07/17 01/07/17 History [Dyazide 37.5-25 Capsule] amLODIPine [Norvasc] 2.5 mg PO DAILY 01/07/17 01/07/17 History sitaGLIPtin PHOS/metFORMIN HCL 1 each PO DAILY 01/07/17 01/07/17 History [Janumet Xr 50-1,000 mg Tablet] Allergies Allergy/AdvReac Type Severity Reaction Status Date / Time lisinopril [From Zestoretic] Allergy Severe Anaphylaxis Verified 01/07/17 16:40 sulfamethoxazole Allergy Severe Anaphylaxis Verified 01/07/17 16:40 [From Bactrim] trimethoprim [From Bactrim] Allergy Severe Anaphylaxis Verified 01/07/17 16:40 adhesive tape Allergy Rash/Hives Verified 01/07/17 16:41 atenolol [From Tenormin] Allergy Rash/Hives, Verified 01/07/17 16:40 itchiing escitalopram oxalate Allergy syncopal Verified 01/07/17 16:40 [From Lexapro] episode formaldehyde Allergy Dyspnea Verified 01/07/17 16:41 metformin [From Janumet] Allergy Diarrhea Verified 01/07/17 16:40 metoprolol [From Lopressor] Allergy Rash/Hives Verified 01/07/17 16:40 sitagliptin [From Janumet] Allergy Diarrhea Verified 01/07/17 16:40 venlafaxine HCl Allergy Chest Pain Verified 01/07/17 16:40 [From Effexor] nifedipine [From Procardia] AdvReac Severe drop in BP Verified 01/07/17 16:40 simvastatin [From Zocor] AdvReac Unknown Verified 01/07/17 16:40 pollen Allergy Unknown Uncoded 01/07/17 16:40 tiger [place] shrimp Allergy Rash/Hives Uncoded 01/07/17 16:40 Surgical - Exam Physical exam: General: Well-developed, well-nourished HEENT: Normocephalic, sclerae nonicteric Right breast: Recent scar noted, some induration, mild tenderness, axillary incision clean and dry Left breast: Recent scar noted, mild induration, mild tenderness, no adenopathy palpable Abdomen: Nontender, nondistended Extremities: No edema Neuro: Alert and oriented Assessment and Plan (1) Bilateral breast cancer Narrative/Plan: Will proceed with bilateral simple mastectomy with left breast sentinel lymph node biopsy. Concurrent reconstruction will take place at that time. We did discuss with the patient the option of nipple sparing mastectomy. Initially the patient requested that approach to the reconstruction. Patient's breast size and pendulous nature of her breast does put her at a increased risk of complications at the nipple. Additionally the patient's genetic mutation puts her at a higher risk of recurrence. At the time of our most recent conversation we had decided to hold off on a nipple sparing approach in this case. Risks of bleeding, infection, recurrence, numbness, nerve injury, seroma , flap ischemia, respiratory and cardiac complications were discussed. She understands and wishes to proceed. Status: Acute Code(s): C50.911 - MALIGNANT NEOPLASM OF UNSP SITE OF RIGHT FEMALE BREAST; C50.912 - MALIGNANT NEOPLASM OF UNSPECIFIED SITE OF LEFT FEMALE BREAST SNOMED Code(s): 418107528
[~2017-01-13 07:26] MED LIST changes: -ALPRAZolam 0.25 MG TAB PO PRN; -DEXAMETHASONE SOD PHOSPHATE 10 MG/ML 1 ML VIAL IV ONE; +HYDROmorphone 0.5 MG/0.5 ML SYRINGE IVP PRN; -HYDROmorphone 1 MG/ML 1 ML SYRINGE IVP PRN; -LACTATED RINGERS 1,000 ML IV SCH; +MIDAZOLAM 2 MG/2 ML VIAL IV PRN
[2017-01-13] MEDS ORDERED: LIDOCAINE 1% 20 ML VIAL (10MG/ML) FOR IV START INTRADERMA ONE (09:21)
[2017-01-13] MEDS: LACTATED RINGERS 1,000 ML IV SCH (09:21)
[2017-01-13] MEDS: DEXAMETHASONE SOD PHOSPHATE 10 MG/ML 1 ML VIAL IV ONE (09:31)
[2017-01-13 09:35] LABS: Glucose,Whole Blood 119 mg/dL (75-99)
--- NOTE | 2017-01-13 10:17 | NM ---
EXAMINATION TYPE: NM sentinel node injection DATE OF EXAM: 01/13/2017 COMPARISON: Exams dating back to 06/30/2016 HISTORY: Personal history of breast cancer. Preprocedural sentinel node injection. TECHNIQUE AND FINDINGS: The procedure of sentinel lymph node injection was explained to the patient. The benefits, alternatives, and risks were discussed. An informed consent was then obtained. Overlying skin is cleaned with sterile alcohol. Lidocaine buffered with bicarbonate was used as anes thetic into the skin and subcutaneous tissue surrounding the nipple. Following this, 515 uCi Tc 99m Filtered Sulfur Colloid was injected into 4 equivalent doses at 12, 3, 6, and 9:00 position surroundi ng the left nipple intradermally. The injection sites were massaged by nuclear test technician for 10 minutes after injection. T he patient tolerated the procedure well without any immediate complication. The patient was kept in the radiology department for short stay after the procedure and then taken to surgery for surgical pr ocedure what is presumed intraoperative gamma probe will be used for sentinel lymph node detection. IMPRESSION: Left breast radiotracer injection for sentinel node localization as above.
[2017-01-13] MEDS ORDERED: ROCURONIUM BROMIDE 10 MG/ML 10 ML VIAL IV ONE (10:31)
[2017-01-13] MEDS ORDERED: LIDOCAINE 1% INJ 10MG/ML (20 ML MDV) ONE (10:31)
[2017-01-13] MEDS ORDERED: PROPOFOL 10 MG/ML 20 ML VIAL IV ONE (10:31)
[2017-01-13] MEDS ORDERED: ceFAZolin 1,000 MG VIAL ONE (10:31)
[2017-01-13] MEDS ORDERED: HYDROmorphone (PF) 1 MG/ML ONE (10:31)
[2017-01-13] MEDS ORDERED: fentaNYL (PF) 50 MCG/ML 2 ML AMP ONE (10:31)
[2017-01-13] MEDS ORDERED: SUCCINYLCHOLINE CHLORIDE 100 MG/5 ML SYR IV ONE (10:31)
[2017-01-13] MEDS ORDERED: ePHEDrine SULFATE/0.9% NACL/PF 50 MG/5 ML SYRINGE IV ONE (10:31)
[2017-01-13] MEDS ORDERED: NEOSTIGMINE 1 MG/ML 10 ML VIAL ONE (10:31)
[2017-01-13] MEDS ORDERED: MIDAZOLAM 2 MG/2 ML VIAL ONE (10:31)
[2017-01-13] MEDS ORDERED: PHENYLEPHRINE-0.9% NACL SYG 1 MG/10 ML SYRINGE ONE (10:31)
[2017-01-13] MEDS ORDERED: METHYLENE BLUE 10 MG/ML (10 ML VIAL) INJ ONE (10:51)
[2017-01-13] MEDS ORDERED: SODIUM CHLORIDE 0.9% 50 ML with ceFAZolin 2,000 MG IV ONE ×2 (11:01)
[2017-01-13] MEDS ORDERED: LACTATED RINGERS 1,000 ML IV ONE ×2 (11:20→13:28)
[2017-01-13] MEDS ORDERED: ONDANSETRON 4 MG/2 ML VIAL IVP PRN (13:08)
[2017-01-13] MEDS ORDERED: NALOXONE 0.4 MG/ML 1 ML VIAL IV PRN (13:08)
[2017-01-13] MEDS ORDERED: HYDROcodone/APAP 5-325MG 1 EACH TAB PO PRN (13:08)
--- NOTE | 2017-01-13 13:30 | P.OP ---
Date of Procedure: 01/13/17 Procedure(s) Performed: PREOPERATIVE DIAGNOSIS: Bilateral breast cancer POSTOPERATIVE DIAGNOSIS: Same PROCEDURE: Bilateral simple mastectomy with sentinel lymph node biopsy left breast with concurrent reconstruction SURGEON: Juan Antonio EBL: Minimal ANESTHESIA: General COMPLICATIONS: None OPERATIVE PROCEDURE: Patient was placed on the operating room table in the supine position. 2 mL of methylene blue was injected into the left subareolar space. The breast was then massaged for 5 minutes. The upper torso anteriorly was prepped and draped in usual sterile fashion. The right side was first addressed. A skin marker was used to draw out a circular incision around the areola encompassing our prior lumpectomy scar site. This incision was then made using the scalpel. Dissection through the subcutaneous tissues took place using electrocautery down to the chest wall circumferentially. The breast was removed from the chest wall at that time. The Ligaclip was used for small visible vessels. No bleeding was encountered. Dr. Rodas from plastic surgery then took over on the right chest wall to begin his reconstruction with tissue expanders. The left side was then addressed. A small curvilinear incision in the left axilla took place over the hot spot identified by neoprobe. The subcutaneous tissues were divided using electrocautery and blunt dissection. A total of 3 hot lymph nodes were identified and removed. An additional fourth lymph node was adherent to one of the lymph nodes and was sent in permanent sectioning later during the procedure. Later the frozen section from these lymph nodes was thankfully benign. In a similar fashion the skin marker was used to draw out the proposed incision around the areola including the previous scar in the left periareolar location. The incision was incised using a scalpel. The skin hooks were utilized and the flaps were raised circumferentially using electrocautery down to the chest wall. The breast was again removed from the chest wall using electrocautery. Small vessels were ligated using the clip director of community education. No bleeding was seen. The left chest wall was then again handed off to Dr. Rodas for formal closure and tissue bank clerk placement. At that point I exited the room. The family was informed of the progress of surgery. DISPOSITION: Patient to remain in the operating for completion and closure by Dr. Rodas.
--- NOTE | 2017-01-13 15:16 | OP ---
OPERATIVE REPORT PREOPERATIVE DIAGNOSES: 1. Acquired loss right and left breast. 2. Bilateral breast cancer. POSTOPERATIVE DIAGNOSES: 1. Acquired loss right and left breast. 2. Bilateral breast cancer. OPERATIVE PROCEDURES: 1. Immediate reconstruction right breast following mastectomy with insertion of tissue dirt supervisor and subsequent outpatient expansion. 2. Immediate reconstruction of left breast following mastectomy with insertion tissue dirt supervisor and subsequent outpatient expansion. 3. Implantation of reconstructive graft for right and left breast reconstruction, 300 square cm. OPERATIVE INDICATIONS: The patient is a 71-year-old female with bilateral breast cancer, referred to my care for the breast reconstruction by her general surgeon. The patient desires to proceed with tissue dirt supervisor style reconstruction. She understands the staged nature of the surgery and the potential risks and complications related to surgery including wound healing problems, postoperative infection, seroma, hematoma, among others. She has requested I perform the surgery. OPERATIVE PROCEDURE SUMMARY: Patient was seen presurgical area as she was transported to the operating room where she was placed in supine position following induction general tracheal anesthesia. The patient is prepped and draped in usual fashion. Dr. Romano and his team began with the right sided of mastectomy. Once that was completed, he proceeded to the left-sided mastectomy and sentinel lymph node procedures for the left side why I initiated the right breast reconstruction. The patient is under general tracheal anesthesia. All sponge and needle counts prior procedure were correct. Using separate instruments I initiated the right breast reconstruction by identifying the pectorals major muscle during the chest wall laterally, loose areolar connective tissue divided with cauterization here allowing entry into the potential plane between the pectorals major minor muscles which were bluntly developed. The medial attachment fibers of the pectorals major muscle to ribs were released with cautery but not sternal attachments inferiorly. Additional muscle tissue groups were recruited to provide coverage for the tissue dirt supervisor inferior medially rectus abdominis muscle and fascia, inferiorly laterally external abdominal oblique muscle and fascia and laterally serratus anterior muscle fascia were all elevated by cauterization with this approach. Once a sufficient size submuscular space had been created, a irrigation was performed. Hemostasis maintained with cautery. The site was packed open with laparotomy sponges that were moistened with saline. Once Dr. Romano completed the left-sided mastectomy and sentinel lymph nodes were reported to the operating room as negative on frozen section, I initiated the left breast reconstruction. Again sponge and needle counts from prior procedure were correct. The pectorals major muscle on the left was identified where it joined the chest wall laterally. Loose areolar connective tissue divided with cautery here allowing entry into the potential plane between the pectorals major minor muscles which was bluntly developed. The medial attachment fibers of the pectorals major muscle to ribs released with cautery but not sternal attachments. Additional muscle groups were recruited for coverage of the dirt supervisor inferior medially rectus abdominis muscle and fascia, inferiorly laterally external abdominal oblique muscle and fascia and laterally serratus anterior muscle and fascia were all elevated through this approach with cauterization. Hemostasis maintained with cautery. Once sufficient size submuscular space created, both sides were inspected. Minor adjustments made for symmetry, measurements were obtained. Irrigation was performed. This demonstrates excellent hemostasis. The gloves were changed. The left-sided tissue dirt supervisor was opened on the field. Both expanders today were [place] Arterial High Profile 600 mL volume, reference number for both devices [id number]. The serial number for the left- sided device was [id number] and serial number for the right-sided device [id number]. The left-sided device was opened 1st only handled by surgeon and irrigated with saline. All air extracted and 50 mL 0.9 normal saline instilled. It is inserted in the reconstructive cavity. The muscle flap tissue could not be approximated over the dirt supervisor without significant tension. Attention was turned towards the placement of the right-sided tissue dirt supervisor. Again, the device was only handled by surgeon after irrigating with saline, all air extracted and 50 mL 0.9 normal saline instilled. It is inserted in the reconstructive cavity. Placement of both expanders was assured under direct vision and placed as symmetrical as possible. The muscle flap tissue on the right side could not be closed over the dirt supervisor without significant tension. Therefore surgeon reconstructive graft measuring 10 x 15 cm was opened on the field. Two pieces required one for the right and one for the left. Once re-vitalized in room temperature saline, the SurgiMend was 1st placed in left deep to the muscle flap and above the dirt supervisor. Once positioned in inferior sling type orientation, the SurgiMend was inset to the muscle flap to the muscle flap tissue using interrupted 3-0 Vicryl sutures. This same step was now completed on the right side with a 2nd piece of SurgiMend and again oriented in inferior sling formation and then once positioned correctly, the SurgiMend and muscle flap were inset to each other using interrupted 3-0 Vicryl sutures. An additional 150 mL normal saline was instilled into both expanders making the final volume 200 mL. Two #19 round Vito channel drains opened on field. One drain each placed into the mastectomy planes and brought out separate stab incision left anterior lower chest wall. Drains were sutured in place with 2-0 Prolene. The circumareolar mastectomy skin incisions were now closed using a deep dermal pursestring technique with 2-0 Prolene followed by final approximation of the dermal edges using inverted interrupted 4-0 Monocryl and the closure with zohra. The patient's left axillary sentinel node incision was irrigated. Hemostasis was excellent. The deep dermis was approximated using inverted interrupted 4-0 Monocryl followed by Monocryl subcuticular and then placement of a paper tape after cleansing with saline and the surgical field was then cleansed. Postoperative bandages placed using Kerlix squares over mastectomy closure sites and drain sponges and secured with 3-0 Medipore tape. The drains were connected to close bulb suction patent. The patient is then awakened from her anesthetic, extubated, and transferred to the recovery room in good condition with stable vital signs. There were no complications. MMODL / IJN: [id number] /
[2017-01-13 15:42] LABS: Glucose,Whole Blood 160 mg/dL (75-99)
[2017-01-13] MEDS: HYDROmorphone 2 MG/ML 1 ML SYRINGE IVP PRN ×2 (17:17→21:12)
[2017-01-13] MEDS ORDERED: LORATADINE 10 MG TAB PO PRN (19:15)
[2017-01-13] MEDS: D5-0.45% NACL WITH KCL 20MEQ/L 1,000 ML IV SCH (20:56)
[2017-01-13] MEDS: FAMOTIDINE 20 MG TAB PO SCH (20:57)
[2017-01-13] MEDS: DOCUSATE 100 MG CAP PO SCH (20:57)
[2017-01-13 21:08] LABS: Glucose,Whole Blood 146 mg/dL (75-99)
[2017-01-13] MEDS: INSULIN ASPART 100 UNIT/ML 1 ML 10 ML VIAL SQ SCH (21:18)
--- NOTE | 2017-01-13 21:34 | CONS ---
CONSULTATION REASON FOR CONSULTATION: Advice regarding hypertension, diabetes, requested by Dr. Romano. HISTORY OF PRESENT ILLNESS: This 71-year-old woman with a past medical history of multiple medical problems including asthma, history of diabetes, DVT, GERD, hypertension, hyperlipidemia, DJD, history of appendectomy, breast surgery, cholecystectomy being followed by Dr. Centeno in the outpatient setting underwent bilateral simple mastectomy with sentinel lymph node biopsy left breast with concurrent reconstruction by Dr. Romano and Dr. Rodas and the patient being closely monitored. There is no history of fever, rigors. No headache, loss of consciousness. PAST MEDICAL HISTORY: History of asthma, DVT, GERD, hypertension, hyperlipidemia, history of DJD, history of MRSA. MEDICATIONS: Prior to admission include home medications are: 1. Janumet 1 tab p.o. daily. 2. Norvasc 2.5 mg. 3. Gluconate 50 mg p.o. daily. 4. Dyazide 1 p.o. daily. 5. [place]-3 1000 mg p.o. daily. 6. Niacin 500 mg p.o. daily. 7. Magnesium 200 mg p.o. daily. 8. Losartan 100 mg p.o. q.a.m. 11.Zyrtec 10 mg daily p.r.n. 12.Augmentin 1 p.o. b.i.d. 13.[place] 5 mg 1 per orally q.4h p.r.n. ALLERGIES: ARE LISINOPRIL, SULFAMETHOXAZOLE, Lexapro METFORMIN, METOPROLOL, JANUVIA, EFFEXOR, PROCARDIA, ZOCOR, POLLEN, AND. FAMILY HISTORY: History of cancer in the family. SOCIAL HISTORY: History of alcohol, previous history of smoking. REVIEW OF SYSTEMS: ENT: No diminished hearing or vision. CARDIOVASCULAR: No angina or palpitations. Respiratory: As mentioned earlier. Gastrointestinal: As mentioned earlier. no dysuria. Central nervous system: No numbness or weakness. Allergy/ Immunology: No asthma or hayfever. Musculoskeletal as mentioned earlier. Endocrine: As mentioned earlier. Constitutional: As mentioned earlier. Dermatology: Negative. Rheumatology: Negative. Psychiatric: As mentioned earlier. PHYSICAL EXAMINATION: The patient is alert and oriented times three. Pulse 109, blood pressure 140/67 , respiration 18, temperature normal, pulse ox 98% on 2 L. HEENT is conjunctivae normal. Oral mucosa moist. Neck is no jugular venous distention. No carotid bruit. No lymph node enlargement. Cardiovascular system: S1, S2 muffled. No S3, no S4. Respiratory: Breath sounds diminished in the bases. No rhonchi. No crackles. ABDOMEN: Soft, nontender. No mass palpable. Legs no edema, no swelling. NERVOUS SYSTEM: Higher functions as mentioned earlier. Moves all four extremities. No focal motor or sensory deficits. Lymphatics: No lymph nodes palpable in the neck, axillae or groin. Skin: Status post bilateral mastectomy and concurrent reconstruction. LABORATORY DATA: Glucose 119 and 160, otherwise other labs previously done: WBC 11.1. Coags are noted. Chemistries noted. Sodium 135. ASSESSMENT: 1. Status post bilateral simple mastectomy with sentinel lymph node biopsy of the left breast with concurrent reconstruction. 2. Diabetes mellitus type 2. 3. History of asthma. 4. History of deep vein thrombosis. 5. Gastroesophageal reflux disease. 6. Hypertension. 7. Hyperlipidemia. 8. History of degenerative joint disease. 9. History of sleep apnea. 10.History of Methicillin-resistant Staphylococcus aureus. 11.Appendectomy. 12.Cholecystectomy. 13.History of cardiac catheterization. 14.Anxiety and depression. RECOMMENDATION: In this 71-year-old woman who presented with multiple complex medical issues, will monitor the patient closely, continue the current medications, continue management and symptomatic treatment. Otherwise at this time I recommend resume the home medications including Tradjenta and diabetes medications and metformin. Monitor blood sugars closely scale. Monitor blood pressure closely. DVT prophylaxis. Incentive spirometry. Will follow the patient closely. The patient may be asked to follow Dr. Centeno closely after discharge. Thank you Dr. Romano for letting us participate in the care of this patient. MMODL / IJN: [id number] / MTDD
--- NOTE | 2017-01-13 23:09 | CONS ---
CONSULTATION DATE OF SERVICE: 01/13/2017. CHIEF COMPLAINT: Pain, right eye. HISTORY OF PRESENT ILLNESS: Ms. Parikh is a 71-year-old female who complains of pain in the right eye for the last approximately 2 hours. The patient had undergone a surgical procedure and notes pain and redness in the right eye since arrival to recovery. The pain is constant and mild. There are no associated symptoms. Visual acuity is only mildly affected. She does not complain of vision loss, double vision or any other ophthalmic symptoms. REVIEW OF SYSTEMS: Occasional shortness of breath, otherwise negative. MEDICAL HISTORY: Significant for coronary artery disease, hypertension, asthma, depression, breast cancer, type 2 diabetes, osteoarthritis. CURRENT MEDICATIONS: 1. Zinc. 2. Zyrtec. 3. Vitamin D. 4. Niacin. 5. Aspirin 81 mg. 6. Tramadol. 7. Hydrochlorothiazide. 8. Losartan. 9. Metoprolol. 10.Janumet. ALLERGIES: BACTRIM, EFFEXOR, LEXAPRO, NORVASC, TENORMIN, ZESTORETIC, SULFA, MOLD. SURGICAL HISTORY: History of breast cancer, status post mastectomy; also significant for vein ligation, cholecystectomy, appendectomy. SOCIAL HISTORY: Previous smoker, quit in 1998. OPHTHALMIC EXAM: Visual acuity is 20/50 at near without correction in the right eye, 20/80 at near without correction left eye. The lids, lashes and conjunctivae are within normal limits. There is a small central linear abrasion in the right cornea. Left cornea is normal. Anterior chamber in both eyes is normal. There is a nuclear sclerotic cataract in both eyes. Vitreous and retina are essentially within normal limits and flat. ASSESSMENT AND PLAN: 1. Corneal abrasion, right eye. The patient has a small linear central corneal abrasion in the right eye. Though the etiology is unclear, the patient may have had incomplete closure of the eye during the surgical procedure causing drying of the cornea or an inadvertent abrasion may have occurred when administering anesthesia. Regardless, the patient was reassured that this will likely heal quickly and not cause any long-term issues. The relatively common occurrence of corneal abrasions during general anesthesia was explained to the patient and her family and they were reassured of the excellent prognosis. Use of erythromycin ophthalmic ointment 3 times daily is recommended. The patient can follow up as an outpatient in the next 3 or 4 days. 2. Nuclear sclerotic cataract, both eyes. This could be further evaluated as an outpatient. 3. 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 Thank you for allowing me to participate in this patient's care. BUNNY / NIGHAT: [id number] /
[2017-01-13] MEDS: HEPARIN SODIUM,PORCINE 5,000 UNIT/ML 1 ML VIAL SQ SCH (23:21)
[2017-01-14] MEDS: ERYTHROMYCIN 5 MG/GM OPHTH OINT 3.5 GM TUBE RIGHT EYE SCH ×3 (00:38→17:02)
[2017-01-14] MEDS: HEPARIN SODIUM,PORCINE 5,000 UNIT/ML 1 ML VIAL SQ SCH ×3 (00:38→17:02)
[2017-01-14] MEDS: HYDROmorphone 2 MG/ML 1 ML SYRINGE IVP PRN ×2 (06:25→11:28)
[2017-01-14] MEDS: D5-0.45% NACL WITH KCL 20MEQ/L 1,000 ML IV SCH (07:34)
[2017-01-14 07:35] LABS: Glucose,Whole Blood 133 mg/dL (75-99)
[2017-01-14] MEDS: INSULIN ASPART 100 UNIT/ML 1 ML 10 ML VIAL SQ SCH ×4 (08:02→21:23)
[2017-01-14] MEDS: LINAGLIPTIN 5 MG TABLET PO SCH ×2 (08:16→08:18)
[2017-01-14] MEDS: amLODIPine 2.5 MG TAB PO SCH (08:16)
[2017-01-14] MEDS: DOCUSATE 100 MG CAP PO SCH ×2 (08:16→21:24)
[2017-01-14] MEDS: FAMOTIDINE 20 MG TAB PO SCH ×2 (08:17→21:25)
[2017-01-14] MEDS: Empagliflozin [Jardiance] 10 MG PO SCH (08:19)
[2017-01-14] MEDS: MAGNESIUM OXIDE 400 MG TAB PO SCH (08:20)
[2017-01-14] MEDS: LOSARTAN 50 MG TAB PO SCH (08:20)
[2017-01-14] MEDS: metFORMIN 500 MG TAB PO SCH ×2 (08:22→21:25)
[2017-01-14] MEDS: TRIAMTERENE-HCTZ 37.5-25MG 1 EACH CAP PO SCH (08:23)
[2017-01-14] MEDS: NIACIN TR 500 MG CAPSULE.ER PO SCH (08:23)
[2017-01-14] MEDS: ZINC SULFATE 220 MG CAP PO SCH (08:25)
[2017-01-14] MEDS: DEXAMETHASONE SOD PHOSPHATE 10 MG/ML 1 ML VIAL IV ONE (08:27)
[2017-01-14 12:19] LABS: Glucose,Whole Blood 117 mg/dL (75-99)
--- NOTE | 2017-01-14 13:25 | P.PN ---
Subjective Progress Note Date: 01/14/17 Principal diagnosis: Breast cancer Patient doing well today. Mild shooting pains in the left chest wall. No nausea or vomiting. Her right eye discomfort is improved. Objective - Vital Signs Vital signs: Vital Signs Temp 97.4 F L 01/14/17 12:18 Pulse 73 01/14/17 12:18 Resp 16 01/14/17 12:18 BP 122/69 01/14/17 12:18 Pulse Ox 96 01/14/17 12:18 Intake & Output 01/13/17 01/14/17 01/14/17 18:59 06:59 18:59 Intake Total 2750 Output Total 400 745 65 Balance 2350 -745 -65 Weight 109.316 kg Intake: IV 2750 Output: Drainage 145 65 Left Breast 80 25 Right Breast 65 40 Urine 350 600 Estimated Blood Loss 50 Other: # Voids 600 - Exam Bilateral chest incisions clean and dry without ischemia or hematoma formation - Labs Labs: Abnormal Lab Results - Last 24 Hours (Table) 01/13/17 01/13/17 01/14/17 Range/Units 15:38 21:04 07:31 POC Glucose (mg/dL) 160 H 146 H 133 H (75-99) mg/dL 01/14/17 Range/Units 12:12 POC Glucose (mg/dL) 117 H (75-99) mg/dL Assessment and Plan (1) Bilateral breast cancer Narrative/Plan: Continue diet as tolerated. Continue eyedrops per ophthalmology. Ambulate. Anticipate discharge tomorrow. Current Visit: Yes Status: Acute Code(s): C50.911 - MALIGNANT NEOPLASM OF UNSP SITE OF RIGHT FEMALE BREAST; C50.912 - MALIGNANT NEOPLASM OF UNSPECIFIED SITE OF LEFT FEMALE BREAST SNOMED Code(s): 634358436
[2017-01-14] MEDS: LACTATED RINGERS 1,000 ML IV SCH (16:25)
[2017-01-14 16:54] LABS: Glucose,Whole Blood 121 mg/dL (75-99)
--- NOTE | 2017-01-14 17:37 | PN ---
PROGRESS NOTE This 71-year-old woman who was admitted after mastectomy is being closely monitored. No chest pain. No palpitations. No fever. PHYSICAL EXAMINATION: Alert and oriented x3. Pulse 83, blood pressure 130/72, respiration 16, temperature 97.2, pulse ox 96% on room air. HEENT: Conjunctivae normal. NECK: No jugular venous distention. CARDIOVASCULAR SYSTEM: S1, S2 muffled. RESPIRATORY SYSTEM: Breath sounds diminished at the bases. No rhonchi. No crackles. Abdomen is soft, nontender. LEGS: No edema. No swelling. NERVOUS SYSTEM: No focal deficit. CHEST: Status post mastectomy. LABS: Glucose 146, 133, 117. Hemoglobin A1c is 7.1. ASSESSMENT: 1. Status post bilateral simple mastectomy with sentinel lymph node biopsy on the left as well as concurrent reconstruction. 2. Diabetes mellitus, type 2. 3. History of asthma. 4. History of deep vein thrombosis. 5. History of gastroesophageal reflux disease. 6. Hypertension. 7. Hyperlipidemia. 8. History of degenerative joint disease. 9. History of sleep apnea. 10.History of methicillin-resistant Staphylococcus aureus. 11.History of appendectomy. 12.Cholecystectomy. 13.Cardiac catheterization. 14.History of anxiety and depression. RECOMMENDATIONS AND DISCUSSION: I recommend to continue current medication, continue symptomatic treatment. DVT prophylaxis. Otherwise, monitor blood sugars closely. Recommend close followup with primary physician in the outpatient setting. Further recommendations to follow. MOISESL / TIANN: [id number] /
[2017-01-14] MEDS: traMADol 50 MG TAB PO PRN (18:06)
[2017-01-14 20:50] LABS: Glucose,Whole Blood 145 mg/dL (75-99)
[2017-01-15] MEDS: HEPARIN SODIUM,PORCINE 5,000 UNIT/ML 1 ML VIAL SQ SCH ×2 (00:24→09:41)
[2017-01-15] MEDS: ERYTHROMYCIN 5 MG/GM OPHTH OINT 3.5 GM TUBE RIGHT EYE SCH ×2 (00:24→09:41)
[2017-01-15 07:03] LABS: Glucose,Whole Blood 138 mg/dL (75-99)
[2017-01-15] MEDS: INSULIN ASPART 100 UNIT/ML 1 ML 10 ML VIAL SQ SCH ×2 (07:19→11:57)
[2017-01-15 08:13] VITALS: RESP 19
[2017-01-15] MEDS: DOCUSATE 100 MG CAP PO SCH (09:42)
[2017-01-15] MEDS: amLODIPine 2.5 MG TAB PO SCH (09:42)
[2017-01-15] MEDS: Empagliflozin [Jardiance] 10 MG PO SCH (09:43)
[2017-01-15] MEDS: FAMOTIDINE 20 MG TAB PO SCH (09:43)
[2017-01-15] MEDS: LOSARTAN 50 MG TAB PO SCH (09:43)
[2017-01-15] MEDS: MAGNESIUM OXIDE 400 MG TAB PO SCH (09:44)
[2017-01-15] MEDS: metFORMIN 500 MG TAB PO SCH (09:45)
[2017-01-15] MEDS: TRIAMTERENE-HCTZ 37.5-25MG 1 EACH CAP PO SCH (09:45)
[2017-01-15] MEDS: NIACIN TR 500 MG CAPSULE.ER PO SCH (09:45)
[2017-01-15] MEDS: ZINC SULFATE 220 MG CAP PO SCH (09:46)
[2017-01-15] MEDS: traMADol 50 MG TAB PO PRN (10:14)
[2017-01-15 11:59] LABS: Glucose,Whole Blood 107 mg/dL (75-99)
[2017-01-15 12:14] VITALS: BP 138/75
[2017-01-15 13:05] VITALS: TEMP 99.3
[2017-01-15 13:07] VITALS: PULSE 80
--- NOTE | 2017-01-15 13:08 | P.DS ---
Providers Expected date of discharge: 01/15/17 Attending physician: Sabino Romano Consults: 01/13/17 13:12 Consult Physician Routine Consulting Provider: Rand Tripp Consult Reason/Comments: Medical management Do you want consulting provider notified?: Yes 01/13/17 16:35 Consult Physician Stat Consulting Provider: Henry Malone Consult Reason/Comments: POSSIBLE CORNEAL ABRASION Do you want consulting provider notified?: Already Contacted Primary care physician: Stated None - Discharge Diagnosis(es) (1) Bilateral breast cancer Patient was admitted 2 days ago for elective bilateral skin sparing mastectomy. She has done well postoperatively. She did develop a corneal abrasion either during anesthesia or in the recovery room. She feels much better at this time. She was seen by both the hospitalist and the ophthalmology service. Drain output has been serosanguineous. Pain is improved. She would like to go home today. She is afebrile. Her incisions are clean without erythema or ischemia. Will discharge with prescription for Ultram. She will follow up with me next Thursday and Dr. Rodas next Thursday. Current Visit: Yes Status: Acute Plan - Discharge Summary New Discharge Prescriptions: New Hydrocodone/Acetaminophen [[place] 5-325] 1 - 2 each PO Q4HR PRN #30 tab PRN Reason: pain traMADol HCl [Ultram] 50 mg PO Q6H PRN #30 tab PRN Reason: Pain No Action Losartan Potassium 100 mg PO QAM Krill Oil 500 mg PO DAILY Zinc Gluconate [Zinc] 50 mg PO DAILY Magnesium 200 mg PO DAILY Cetirizine HCl [Zyrtec] 10 mg PO DAILY PRN PRN Reason: Allergy Symptoms Niacin 500 mg PO DAILY Empagliflozin [Jardiance] 10 mg PO DAILY Triamterene-Hctz 37.5-25Mg [Dyazide 37.5-25 Capsule] 1 cap PO DAILY sitaGLIPtin PHOS/metFORMIN HCL [Janumet Xr 50-1,000 mg Tablet] 1 each PO DAILY [place]-3 Fatty Acids [[place]-3] 1,000 mg PO DAILY amLODIPine [Norvasc] 2.5 mg PO DAILY Amoxicillin/Potassium Clav [Augmentin 875-125 Tablet] 1 tab PO Q12HR Discharge Medication List Losartan Potassium 100 mg PO QAM 07/27/14 [History] Cetirizine HCl [Zyrtec] 10 mg PO DAILY PRN 10/02/14 [History] Krill Oil 500 mg PO DAILY 10/02/14 [History] Magnesium 200 mg PO DAILY 10/02/14 [History] Niacin 500 mg PO DAILY 10/02/14 [History] Zinc Gluconate [Zinc] 50 mg PO DAILY 10/02/14 [History] Amoxicillin/Potassium Clav [Augmentin 875-125 Tablet] 1 tab PO Q12HR 01/07/17 [ History] Empagliflozin [Jardiance] 10 mg PO DAILY 01/07/17 [History] [place]den-3 Fatty Acids [[place]den-3] 1,000 mg PO DAILY 01/07/17 [History] Triamterene-Hctz 37.5-25Mg [Dyazide 37.5-25 Capsule] 1 cap PO DAILY 01/07/17 [ History] amLODIPine [Norvasc] 2.5 mg PO DAILY 01/07/17 [History] sitaGLIPtin PHOS/metFORMIN HCL [Janumet Xr 50-1,000 mg Tablet] 1 each PO DAILY 01/07/17 [History] Hydrocodone/Acetaminophen [[place] 5-325] 1 - 2 each PO Q4HR PRN #30 tab 01/13/17 [Rx] traMADol HCl [Ultram] 50 mg PO Q6H PRN #30 tab 01/14/17 [Rx] Follow up Appointment(s)/Referral(s): Sabino Romano MD [Medical Doctor] - 1 Week Activity/Diet/Wound Care/Special Instructions: FOLLOW UP WITH DR. MALONE 4 DAYS POST DISCHARGE
--- NOTE | 2017-01-15 13:36 | PN ---
PROGRESS NOTE DATE OF SERVICE: 01/15/2017. INTERVAL HISTORY: This 71-year-old woman who was admitted after bilateral simple mastectomy is improving significantly. No chest pain. No palpitations. No fever. EXAM: Alert and oriented times three. Pulse 95, blood pressure 140/83, respiration 18, temperature 98 degrees, pulse ox 98% on room air. HEENT conjunctivae normal. Neck no jugular venous distention. Cardiovascular: S1, S2 muffled. Breath sounds diminished in the bases. No rhonchi. No crackles. Abdomen is soft, nontender. Legs no edema. Central nervous system: No focal deficits. Examination of the breast status post mastectomy. LABS: Accu-Cheks 145, 131, 107. ASSESSMENT: 1. Status post bilateral simple mastectomy with sentinel lymph node biopsy on the left, status post concurrent reconstruction. 2. Diabetes type 2 on insulin scale. 3. History of asthma. 4. History of deep vein thrombosis. 5. History of gastroesophageal reflux disease. 6. History of hypertension. 7. Hyperlipidemia. RECOMMENDATIONS AND DISCUSSION: Recommend to continue current medications, management and symptomatic treatment. Recommended to continue monitor Accu-Cheks a.c. and q.h.s. and closely follow with Dr. Centeno in the outpatient setting. Resume the home diabetic medications and further recommendations to follow. MMODL / IJN: [id number] /
== END 2017-01-15 13:45 | disposition home or self-care (01) ==
LOC: OR 07:26 → 6PED 14:12 → OR 01-15 13:45
PROVIDERS: ATTEND Surgery
DX: C50.911 Malignant neoplasm of unspecified site of right female breast (principal); D05.12 Intraductal carcinoma in situ of left breast; D05.02 Lobular carcinoma in situ of left breast; S05.01XA Injury of conjunctiva and corneal abrasion without foreign body, right eye, initial encounter; Y92.239 Unspecified place in hospital as the place of occurrence of the external cause; X58.XXXA Exposure to other specified factors, initial encounter; Z15.01 Genetic susceptibility to malignant neoplasm of breast; Z80.3 Family history of malignant neoplasm of breast; H25.13 Age-related nuclear cataract, bilateral; H43.813 Vitreous degeneration, bilateral; I25.10 Atherosclerotic heart disease of native coronary artery without angina pectoris; I11.9 Hypertensive heart disease without heart failure; J45.909 Unspecified asthma, uncomplicated; F32.9 Major depressive disorder, single episode, unspecified; E11.9 Type 2 diabetes mellitus without complications; M19.90 Unspecified osteoarthritis, unspecified site; E78.00 Pure hypercholesterolemia, unspecified; R01.1 Cardiac murmur, unspecified; K21.9 Gastro-esophageal reflux disease without esophagitis; F41.9 Anxiety disorder, unspecified; G47.33 Obstructive sleep apnea (adult) (pediatric); Z99.89 Dependence on other enabling machines and devices; Z98.51 Tubal ligation status; Z86.718 Personal history of other venous thrombosis and embolism; Z79.82 Long term (current) use of aspirin; Z79.84 Long term (current) use of oral hypoglycemic drugs; Z79.2 Long term (current) use of antibiotics; Z79.891 Long term (current) use of opiate analgesic; Z79.899 Other long term (current) drug therapy; Z91.048 Other nonmedicinal substance allergy status; Z88.8 Allergy status to other drugs, medicaments and biological substances; Z88.2 Allergy status to sulfonamides; Z88.1 Allergy status to other antibiotic agents; Z91.013 Allergy to seafood; Z86.14 Personal history of Methicillin resistant Staphylococcus aureus infection; Z87.891 Personal history of nicotine dependence
CPT/HCPCS: 83036; 38792; 19303; 38525; 19357; 15777; C1763; A9541; J1170 ×3; J1644 ×3; J1100; J2405; J2001; Q9968; J0690; 88305; 88307; 88331; 88341; 88342

== ENCOUNTER → 2017-06-05 | Outpatient (CLI) | payer MEDICARE, BC | LOC: LABPAT 12:05 | PROVIDERS: ATTEND Plastic Surgery | DX: Z01.812 Encounter for preprocedural laboratory examination (principal) | CPT/HCPCS: 36415; 84132 ==

== ENCOUNTER 2017-06-10 07:04 | Day surgery (SDC) | payer MEDICARE, BC ==
[2017-06-04 13:14] VITALS: BMI 38.8
[~2017-06-10 07:04] MED LIST changes: -HEPARIN SODIUM,PORCINE 5,000 UNIT/ML 1 ML VIAL SQ ONE; -HYDROmorphone 0.5 MG/0.5 ML SYRINGE IVP PRN; -MIDAZOLAM 2 MG/2 ML VIAL IV PRN; -ONDANSETRON 4 MG/2 ML VIAL IVP ONE
[2017-06-10] MEDS ORDERED: LACTATED RINGERS 1,000 ML IV SCH (07:41)
[2017-06-10] MEDS ORDERED: ONDANSETRON 4 MG/2 ML VIAL IVP ONE (07:41)
[2017-06-10] MEDS ORDERED: LIDOCAINE 1% 20 ML VIAL (10MG/ML) FOR IV START INTRADERMA PRN (07:41)
[2017-06-10] MEDS ORDERED: MORPHINE SULFATE 2 MG/ML SYRINGE IV PRN (07:41)
[2017-06-10] MEDS ORDERED: ceFAZolin IN SWFI 2 GM/20 ML SYRINGE IVP ONE (08:30)
[2017-06-10] MEDS ORDERED: SUCCINYLCHOLINE CHLORIDE VIAL 200 MG/10 ML VIAL IV ONE (08:42)
[2017-06-10] MEDS ORDERED: ePHEDrine SULFATE/0.9% NACL/PF 50 MG/5 ML SYRINGE IV ONE (08:42)
[2017-06-10] MEDS ORDERED: PROPOFOL 10 MG/ML 20 ML VIAL IV ONE (08:42)
[2017-06-10] MEDS ORDERED: PHENYLEPHRINE-0.9% NACL SYG 1 MG/10 ML SYRINGE ONE (08:42)
[2017-06-10] MEDS ORDERED: fentaNYL (PF) 50 MCG/ML 2 ML AMP ONE (08:42)
[2017-06-10] MEDS ORDERED: MIDAZOLAM 2 MG/2 ML VIAL ONE (08:42)
[2017-06-10] MEDS ORDERED: LIDOCAINE 1% INJ 10MG/ML (20 ML MDV) ONE (08:42)
[2017-06-10 08:46] LABS: Glucose,Whole Blood 136 mg/dL (75-99)
[2017-06-10] MEDS ORDERED: LACTATED RINGERS 1,000 ML IV ONE ×2 (09:51)
[2017-06-10 10:14] VITALS: TEMP 97.4
[2017-06-10 10:28] VITALS: RESP 18
[2017-06-10 11:26] LABS: Glucose,Whole Blood 181 mg/dL (75-99)
[2017-06-10 11:40] VITALS: BP 132/76; PULSE 83
[2017-06-10] MEDS ORDERED: Acetaminophen-Codeine 300-30mg TAB PO ONE (11:46)
--- NOTE | 2017-06-10 14:45 | OP ---
OPERATIVE REPORT DATE OF PROCEDURE: 06/10/2017. SURGEON: Michael Rodas MD PREOPERATIVE DIAGNOSES: 1. Malfunction right reconstructed breast tissue director medical economics. 2. Personal history of breast cancer. 3. Acquired loss right breast. POSTOPERATIVE DIAGNOSES: 1. Malfunction right reconstructed breast tissue director medical economics. 2. Personal history of breast cancer. 3. Acquired loss right breast. OPERATIVE PROCEDURE: Exploration right reconstructed breast with replacement of tissue director medical economics for right breast reconstruction with subsequent outpatient expansion. OPERATIVE INDICATIONS: The patient is a 71-year-old female, who has undergone bilateral mastectomy for treatment of breast cancer with a tissue director medical economics placement for reconstruction. At the time of her postoperative course initially appeared normal and she was tolerating the expansions. She was seen and evaluated in the office with a significant volume decrease involving the right reconstructive breast. The director medical economics was functioning normal as to what could be determined externally; however, not holding fluid. The patient was counseled that she would require exploration, likely replacement of her director medical economics. She decided to proceed with reconstruction. Also, the patient decided to proceed in this manner, she understands her potential risks and complications associated with surgery including infection, seroma, hematoma, wound healing problems, among others. She has requested I perform the surgery. OPERATIVE PROCEDURE SUMMARY: The patient was seen in the preoperative area, markings made, procedure reviewed. She was transported to the operating room where she was placed in supine position following induction of general tracheal anesthesia. The patient is prepped and draped in the usual fashion. The right breast mastectomy scar was outlined in elliptical fashion, sharply excised with a 10 blade scalpel and sent to Pathology for permanent evaluation. Subcutaneous tissue layer divided with cauterization, identifying the muscle flap fascia. The skin subcutaneous tissue flaps were dissected off the muscle flap layer for a small amount for offsetting the incision through the muscle flap at a different level than the skin incision. Along the inferior transverse incision sternal, it was then made over the muscle flap layer dividing this layer, exposing the director medical economics. The director medical economics was ruptured. A large hole was noted in an area where the director medical economics was apparently creased. The patient was noted to have what appeared to be a seroma cavity when dissecting skin and subcutaneous tissue flaps which may have accounted for the similar-looking volume for a period of time. The ruptured director medical economics was removed and discarded. The cavity was scarred down, which required revision of the patient's muscle flap layer to allow for placement of a new director medical economics to be functional. This was completed with realization portion of the muscle flap layer which included the pectorals major muscle, rectus abdominis muscle, external abdominal oblique muscle, serratus anterior muscle. Dissection was also performed to release tissue expansion capsule that had deformed dividing the layer in multiple cruciate locations. With this completed, irrigation was performed using pulsatile irrigation system, several L of fluid, hemostasis maintained with cautery. Gloves were now changed and a new director medical economics opened on the field. Certified Master Safe Technician was the same size as the one removed measuring 600 mL in volume from the mentor arterial high-profile model line, reference number TEXP 140 rh 0 #[id number]. Device was only handled by the surgeon, all air is extracted, 50 mL 0.9 normal saline instilled. It is inserted into the reconstructive plane. Orientation assured under direct vision. The muscle flap layer was now closed over the director medical economics using interrupted 3-0 Vicryl sutures. The muscle flap layer easily closed over the director medical economics. Additional fluid was now was instilled into the director medical economics until the volume was 350 mL. Irrigation was performed. Hemostasis was excellent. A 19 round Vito channel drain is entered in the surgical field above the muscle flap and deep to skin flaps. It is brought through a separate stab incision and right anterior lateral chest wall and sutured placed with 2-0 Prolene. The drain was cut to appropriate length. The skin incision was now closed approximating deep dermis using inverted interrupted 4- 0 Monocryl followed by closure of superficial dermis and epidermis running 5-0 Prolene. Surgical field was cleansed with saline, dried postoperative bandages placed using 4x4s, secured 3-0 Medipore tape, Drain was connected to close bulb suction, patent. The patient was then awakened in the operating room, transferred to recovery room in good condition. Stable vital signs. ESTIMATED BLOOD LOSS: 25 mL. There were no complications. MMODL / IJN: [id number] /
== END 2017-06-10 12:50 | disposition home or self-care (01) ==
LOC: OR 07:04
PROVIDERS: ATTEND Plastic Surgery
DX: T85.43XA Leakage of breast prosthesis and implant, initial encounter (principal); N64.1 Fat necrosis of breast; N61.1 Abscess of the breast and nipple; M60.28 Foreign body granuloma of soft tissue, not elsewhere classified, other site; Z18.9 Retained foreign body fragments, unspecified material; Z85.3 Personal history of malignant neoplasm of breast; Z90.13 Acquired absence of bilateral breasts and nipples; M19.90 Unspecified osteoarthritis, unspecified site; F32.9 Major depressive disorder, single episode, unspecified; F41.9 Anxiety disorder, unspecified; E11.9 Type 2 diabetes mellitus without complications; I11.9 Hypertensive heart disease without heart failure; R01.1 Cardiac murmur, unspecified; E78.00 Pure hypercholesterolemia, unspecified; J44.9 Chronic obstructive pulmonary disease, unspecified; K21.9 Gastro-esophageal reflux disease without esophagitis; K44.9 Diaphragmatic hernia without obstruction or gangrene; Z78.0 Asymptomatic menopausal state; Z80.3 Family history of malignant neoplasm of breast; Z82.49 Family history of ischemic heart disease and other diseases of the circulatory system; Z79.84 Long term (current) use of oral hypoglycemic drugs; Z79.82 Long term (current) use of aspirin; Z79.899 Other long term (current) drug therapy; Z88.8 Allergy status to other drugs, medicaments and biological substances; Z91.048 Other nonmedicinal substance allergy status; Z91.09 Other allergy status, other than to drugs and biological substances; Z88.1 Allergy status to other antibiotic agents; Z88.2 Allergy status to sulfonamides; Z87.891 Personal history of nicotine dependence
CPT/HCPCS: 88305

== ENCOUNTER → 2017-09-03 | Outpatient (CLI) | payer MEDICARE, BC | END | disposition home or self-care (01) | LOC: LABPAT 10:41 | PROVIDERS: ATTEND Plastic Surgery | DX: Z01.818 Encounter for other preprocedural examination (principal); Z01.812 Encounter for preprocedural laboratory examination | CPT/HCPCS: 36415; 84132; 93005 ==

== ENCOUNTER 2017-09-08 08:41 | Day surgery (SDC) | payer MEDICARE, BC ==
[2017-09-02 14:37] VITALS: BMI 39.1
[~2017-09-08 08:41] MED LIST changes: +DEXAMETHASONE SOD PHOSPHATE 10 MG/ML 1 ML VIAL IV ONE; +HYDROmorphone 0.5 MG/0.5 ML SYRINGE IVP PRN; +LACTATED RINGERS 1,000 ML IV SCH; +LIDOCAINE 1% 20 ML VIAL (10MG/ML) FOR IV START INTRADERMA PRN; +MIDAZOLAM 2 MG/2 ML VIAL IV PRN; +ONDANSETRON 4 MG/2 ML VIAL IVP ONE; +fentaNYL (PF) 50 MCG/ML 2 ML AMP IV PRN
[2017-09-08] MEDS ORDERED: ceFAZolin IN SWFI 2 GM/20 ML SYRINGE IVP STA (09:37)
[2017-09-08 10:12] LABS: Basophils # (A) 0.1 k/uL (0-0.2); Basophils % (A) 1 %; Eosinophils # (A) 0.3 k/uL (0-0.7); Eosinophils % (A) 5 %; HGB 14.5 gm/dL (11.4-16.0); Lymphocytes # (A) 1.4 k/uL (1.0-4.8); Lymphocytes % (A) 19 %; MCH 29.2 pg (25.0-35.0); MCV 88.4 fL (80.0-100.0); Mean Platelet Volume 6.7; Monocytes # (A) 0.7 k/uL (0-1.0); Monocytes % (A) 9 %; Neutrophils # (A) 4.6 k/uL (1.3-7.7); Neutrophils % (A) 63 %; Platelet Count 221 k/uL (150-450); RBC 4.98 m/uL (3.80-5.40); WBC 7.2 k/uL (3.8-10.6)
[2017-09-08] MEDS ORDERED: SUCCINYLCHOLINE CHLORIDE 100 MG/5 ML SYR IV ONE (10:15)
[2017-09-08] MEDS ORDERED: fentaNYL (PF) 50 MCG/ML 2 ML AMP ONE (10:15)
[2017-09-08] MEDS ORDERED: ePHEDrine SULFATE/0.9% NACL/PF 50 MG/5 ML SYRINGE IV ONE (10:15)
[2017-09-08] MEDS ORDERED: PROPOFOL 10 MG/ML 20 ML VIAL IV ONE (10:15)
[2017-09-08] MEDS ORDERED: MIDAZOLAM 2 MG/2 ML VIAL ONE (10:15)
[2017-09-08] MEDS ORDERED: ePHEDrine 50 MG/ML 1 ML AMP ONE (10:15)
[2017-09-08] MEDS ORDERED: LIDOCAINE 1% INJ 10MG/ML (20 ML MDV) ONE (10:15)
[2017-09-08 10:29] LABS: Calcium 9.8 mg/dL (8.4-10.2); Potassium 4.1 mmol/L (3.5-5.1)
[2017-09-08 10:36] LABS: Glucose,Whole Blood 145 mg/dL (75-99)
[2017-09-08] MEDS ORDERED: LACTATED RINGERS 1,000 ML IV ONE (12:11)
[2017-09-08 12:31] VITALS: TEMP 96.9
[2017-09-08 13:32] VITALS: RESP 18
[2017-09-08 13:43] VITALS: BP 125/77; PULSE 102
--- NOTE | 2017-09-08 20:59 | OP ---
OPERATIVE REPORT DATE OF SURGERY: 09/08/2017. SURGEON: Dr. Michael Rodas. PREOPERATIVE DIAGNOSES:: 1. Acquired loss right breast. 2. Acquired loss left breast. 3. Acquired deformity of right and left reconstructed breast. 4. Acquired loss right and left breast inframammary folds. POSTOPERATIVE DIAGNOSES:: 1. Acquired loss of right breast. 2. Acquired loss of left breast. 3. Acquired deformity, right and left reconstructed breasts. 4. Acquired loss right and left inframammary folds. OPERATIONS:: 1. Replace right breast tissue steam meter reader with silicone breast implant for right breast reconstruction. 2. Revision right reconstructed breast. 3. Replace left breast tissue steam meter reader with silicone breast implant for left breast reconstruction. 4. Revision left reconstructed breast. 5. Reconstruction of right and left inframammary folds via local advancement flap, 35 square cm. ESTIMATED BLOOD LOSS:: 100 mL. SPECIMEN TAKEN:: OPERATIVE INDICATIONS: The patient is a 71-year-old female who has undergone bilateral mastectomy for bilateral breast cancer. She elected to proceed with tissue steam meter reader style reconstruction at the time of the mastectomy. Expanders were placed and the patient underwent outpatient expansion. She did require replacement of the right tissue steam meter reader, as it was nonfunctional. After this was performed, expansion proceeded normally. She is returning today for her 2nd stage of breast reconstruction surgery, which will include replacement of her tissue expanders with silicone breast implants, revision of right reconstructed breast due to significant contour deformities and asymmetry and irregularities as well as reconstruction of the right left inframammary folds that have been effaced to the mastectomy and expansion processes. She understands the potential risks and complications of all surgery, including today's surgery, such as postoperative infection, hematoma, seroma, wound healing problems, asymmetry and the need for future surgery, among others. She has requested I perform the surgery. NARRATIVE:: The patient was seen in the presurgical area; markings made, procedure reviewed, all questions answered. She was transported to the operating room, where she was placed in supine position. Following induction general tracheal anesthesia, patient was prepped and draped in usual fashion. The preoperative surgical markings were re-inked. The surgery was initiated on the right side, making a transverse incision through the scar area with a 10 blade scalpel followed by use of cauterization to divide subcutaneous tissue until identifying the muscle flap tissue. A small seroma cavity was present here and all sources of the seroma cavity were excised with cauterization. Extensive dissection was then performed to release the skin and subcutaneous tissue envelope from the muscle flap tissue to release contour irregularities that were significant. Once this was completed, a lower transverse incision was made through the muscle flap tissue, exposing the steam meter reader. The steam meter reader was removed intact. The steam meter reader cavity appeared normal with a shiny surface, a small amount of fluid. No granulation tissue. No exudates. The cavity was irrigated. Multiple cruciate incisions were made through the capsular structure, including the circumferential capsulotomy incision as well. This released the tightness of the capsule. Hemostasis maintained with cautery. Additional irrigation performed. The cavity was packed with several moistened laparotomy sponges and attention was turned toward the left side. Again, transverse incision was made through the scar area, dividing skin in full-thickness fashion followed by cauterization of subcutaneous tissue until reaching the muscle flap layer. No seroma cavity was identified on this side. The skin and subcutaneous tissue flaps were then elevated off the muscle flap tissue. Extensive dissection was required with cautery to release these layers to allow for redraping and correction of the contour irregularities present. A lower transverse incision was made through the muscle flap tissue with cauterization, exposing the steam meter reader. Conservation Assistant was removed intact. The expansion cavity appeared normal. A small amount of serous fluid, shiny services. No granulation tissue. No exudate. A complete capsulotomy incision was made where the capsule joined the chest wall and multiple cruciate incisions through the capsular structure were completed with cauterization. Hemostasis was maintained with cautery. Additional irrigation was performed. The inframammary folds of right and left side were not symmetrical preoperatively or at this point. Each fold was reconstructed by developing skin and subcutaneous tissue flap through the inferior capsulotomy incision by dissection with cautery. The right-sided flap measured 18 x 1 cm and the left-sided flap 18 x 1.5 cm. Once the flaps were elevated, they were secured to the chest wall with several interrupted 2-0 and 3-0 Vicryl sutures, creating discrete inframammary folds on the right and left sides. Both cavities were irrigated. Temporary breast implant sizers were opened on the field, measuring 800 mL and inserted in the reconstructive cavity desired. This was the correct volume for the patient and also noted optimal position for the inframammary folds bilaterally. Gloves were now changed. Temporary breast implant sizers removed. Each cavity irrigated. Hemostasis was excellent. Breast implants were opened on the field. The right-sided implant was placed first. Both implants were from the [employer], memory gel, smooth, round, high-profile, style 4000 smooth. The reference number for both devices [id number], the right-sided serial number was [id number]. On the left side the serial number was [id number]. The right-sided device was placed first and orientation ensured under direct vision. The left-sided device was placed. Each implant was only handled by surgeon and rinsed with saline prior to insertion. The muscle flap tissue on the right left sides was then closed over the implants using short running interrupted 3-0 Vicryl sutures. The skin envelope on each side was noted to be redundant after releasing all the contour areas described earlier. Following markings preoperatively, circular areas were excised on the right and left sides, including skin and subcutaneous tissue as well as scar tissue. For the right side, also the seroma cavity capsule and this tissue was sent to Pathology. For the left side, only this tissue. Hemostasis was maintained with cautery. These incisions were now closed in a pursestring style fashion using a 2-0 Prolene pursestring suture placed in a deep dermal layer, followed by final approximation of the deep dermis using 3-0 Monocryl and then closure of the skin for a more fine approximation with interrupted zohra. Each surgical site was cleansed with saline, dried and postoperative bandages placed using 4 x 4 Kerlix squares, ABD pad secured with 3-0 Medipore tape, then positioned a size 4 mammary support. The patient was then awakened from anesthesia, extubated and transferred to recovery room in good condition with stable vital signs. The estimated blood loss was 100 mL and there were no complications. MMODL / IJN: [id number] /
== END 2017-09-08 14:05 | disposition home or self-care (01) ==
LOC: OR 08:41
PROVIDERS: ATTEND Plastic Surgery
DX: Z42.1 Encounter for breast reconstruction following mastectomy (principal); N65.0 Deformity of reconstructed breast; N60.32 Fibrosclerosis of left breast; N60.31 Fibrosclerosis of right breast; L92.3 Foreign body granuloma of the skin and subcutaneous tissue; Z85.3 Personal history of malignant neoplasm of breast; Z90.13 Acquired absence of bilateral breasts and nipples; I10 Essential (primary) hypertension; I25.10 Atherosclerotic heart disease of native coronary artery without angina pectoris; J45.909 Unspecified asthma, uncomplicated; E11.9 Type 2 diabetes mellitus without complications; E78.5 Hyperlipidemia, unspecified; M19.90 Unspecified osteoarthritis, unspecified site; K21.9 Gastro-esophageal reflux disease without esophagitis; G47.33 Obstructive sleep apnea (adult) (pediatric); Z86.718 Personal history of other venous thrombosis and embolism; Z79.899 Other long term (current) drug therapy; Z88.2 Allergy status to sulfonamides; Z88.8 Allergy status to other drugs, medicaments and biological substances; Z88.5 Allergy status to narcotic agent; Z91.048 Other nonmedicinal substance allergy status
CPT/HCPCS: 80048; 85025; 88302; 19342; 14001; C1789; J2250; J1100; J2405; J2001; J3010; J0330; J2704; J0690

== ENCOUNTER → 2018-08-19 | Outpatient (CLI) | payer MEDICARE, BC ==
[2018-08-19 10:47] LABS: HCT 46.4 % (34.0-46.0); HGB 14.6 gm/dL (11.4-16.0); MCH 27.8 pg (25.0-35.0); MCHC 31.3 g/dL (31.0-37.0); MCV 88.6 fL (80.0-100.0); Mean Platelet Volume 6.5; Platelet Count 303 k/uL (150-450); RBC 5.24 m/uL (3.80-5.40); RDW 13.5 % (11.5-15.5); WBC 7.9 k/uL (3.8-10.6)
[2018-08-19 16:40] LABS: LDL Cholesterol,Calculated 132.2 mg/dL (0.0-131.0); VLDL Calculation 52.8 mg/dL (5.00-40.00)
[2018-08-19 17:41] LABS: Hemoglobin A1C 8.7 % (4.0-6.0)
== END | disposition home or self-care (01) ==
LOC: LABWHC1 09:59
PROVIDERS: ATTEND Internal Medicine
DX: I10 Essential (primary) hypertension (principal); R10.2 Pelvic and perineal pain; E11.9 Type 2 diabetes mellitus without complications
CPT/HCPCS: 36415; 80061; 82150; 83036; 83690; 84439; 84443; 85027; 86304

== ENCOUNTER → 2021-06-18 | Outpatient (CLI) | payer MEDICARE ==
--- NOTE | 2021-06-18 22:07 | US ---
EXAMINATION TYPE: US kidneys/renal and bladder DATE OF EXAM: 06/18/2021 COMPARISON: NONE CLINICAL HISTORY: N28.1 CYST OF KIDNEY, ACQUIRED,D4410. EXAM MEASUREMENTS: Right Kidney: 11.4 x 4.5 x 6.5 cm Left Kidney: 11.9 x 4.8 x 6.1 cm Post Void Residual Volume: 47.43 mL Right Kidney: lower pole cystic structure measures 6.1 x 6.1 x 5.5 cm Left Kidney: lower pole cyst measures 5.4 x 4.8 x 5.5 cm parapelvic cyst measures 2.4 x 2.4 x 2.6 cm. Bladder: wnl Normal Post Void Residual: yes There is no evidence for hydronephrosis at this point in time. No nephrolithiasis is seen. There is 6.1 x 6.0 x 5.5 cm oval anechoic avascular lesion with irregular borders favoring benign thin-walled cyst but not definitive on this. Adjacent liver is heterogeneously hyperechoic. Simple appearing thin -walled cyst in the left kidney. Bladder satisfactorily distended. After voiding some residual urine, calculated volume just under 50 cc. IMPRESSION: Cannot definitively classify exophytic lesion right kidney lower pole level as definitive thin-walled cyst on this study due to size and deep location. Advise further investigation with sofie l protocol contrast-enhanced CT or MRI to better assess.
== END | disposition home or self-care (01) ==
LOC: RADUSWWP 15:53
PROVIDERS: ATTEND Family Medicine
DX: N28.1 Cyst of kidney, acquired (principal)
CPT/HCPCS: 76770

== ENCOUNTER → 2021-06-19 | Outpatient (CLI) | payer MEDICARE ==
--- NOTE | 2021-06-20 07:03 | CA ---
Transthoracic Echo Report Name: Lana Parikh Age: 75 Gender: F : 1945 Exam Date: 06/19/2021 13:58 Exam Location: [place] [facility] Ht (in): 67 Wt (lb): 240 Ordering Physician: Ander Brown DO Attending/Referring Phys: Recruiter Coordinator Jennifer Sandoval RDCS Procedure CPT: Indications: R06.02 sob I10 HTN R60.9 EDEMA Cardiac Hx: Hx of known heart murmur. Technical Quality: Good Contrast 1: Total Dose (mL): Contrast 2: Total Dose (mL): MEASUREMENTS (Male / Female) Normal Values 2D ECHO LV Diastolic Diameter PLAX 4.2 cm 4.2 - 5.9 / 3.9 - 5.3 cm LV Systolic Diameter PLAX 1.9 cm IVS Diastolic Thickness 1.3 cm 0.6 - 1.0 / 0.6 - 0.9 cm LVPW Diastolic Thickness 1.6 cm 0.6 - 1.0 / 0.6 - 0.9 cm LV Relative Wall Thickness 0.7 RV Internal Dim ED PLAX 3.1 cm LVOT Diameter 1.5 cm LA Volume 55.8 cm 18 - 58 / 22 - 52 cm M-MODE Aortic Root Diameter MM 3.6 cm LA Systolic Diameter MM 3.1 cm LA Ao Ratio MM 0.8 MV E Point Septal Separation 1.0 cm AV Cusp Separation MM 1.1 cm DOPPLER AV Peak Velocity 189.4 cm/s AV Peak Gradient 14.3 mmHg AV Mean Velocity 142.7 cm/s AV Mean Gradient 9.0 mmHg AV Velocity Time Integral 43.4 cm AI Peak Velocity 556.3 cm/s AI Peak Gradient 123.8 mmHg AI Pressure Half Time 1001.8 ms LVOT Peak Velocity 91.1 cm/s LVOT Peak Gradient 3.3 mmHg AV Area Cont Eq pk 0.9 cm MV Area PHT 4.5 cm MR Peak Velocity 275.0 cm/s MR Peak Gradient 30.3 mmHg Mitral E Point Velocity 69.6 cm/s Mitral A Point Velocity 142.6 cm/s Mitral E to A Ratio 0.5 MV Deceleration Time 167.7 ms MV E' Velocity 3.4 cm/s Mitral E to MV E' Ratio 20.6 TR Peak Velocity 190.4 cm/s TR Peak Gradient 14.5 mmHg Right Ventricular Systolic Press 18.1 mmHg PV Peak Velocity 80.9 cm/s PV Peak Gradient 2.6 mmHg PI Peak Gradient 11.2 mmHg FINDINGS Left Ventricle Moderate LVH. Left ventricular ejection fraction is estimated at 55-60 %. Normal LAP grade 1 diastolic dysfunction. Right Ventricle The right ventricle is normal in size and function. Right Atrium The right atrium is normal in size. Left Atrium Mildly increased left atrial volume. Mitral Valve Structurally normal mitral valve without significant stenosis or prolapse. There is mild to moderate mitral regurgitation. Mitral valve thickened. Mild mitral annular calcification. Aortic Valve Mild aortic stenosis with a peak gradient of 16 mmHg and a mean gradient of 8 mmHg. There is moderate to severe aortic regurgitation. Tricuspid Valve Structurally normal tricuspid valve without significant stenosis. Pulmonary artery systolic pressure is normal. Mild tricuspid regurgitation. Pulmonic Valve Structurally normal pulmonic valve without significant stenosis. There is no pulmonic regurgitation. Pericardium Normal pericardium without effusion. Aorta Normal aortic root dimension. CONCLUSIONS Normal LV size and systolic function with moderate concentric LVH. There is mitral annular calcification and aortic sclerosis. There is yaal-me-palgpdfb mitral regurgitation. No significant gradient across aortic valve. No significant pulmonary hypertension. No pericardial effusion Previewed by: Dr. Sebastien Shah MD (Electronically Signed) Final Date: 20 June 2021 07:02
== END | disposition home or self-care (01) ==
LOC: RADECHMAIN 13:47
PROVIDERS: ATTEND Family Medicine
DX: I10 Essential (primary) hypertension (principal); I25.10 Atherosclerotic heart disease of native coronary artery without angina pectoris; I34.0 Nonrheumatic mitral (valve) insufficiency; R60.9 Edema, unspecified
CPT/HCPCS: 93306

== ENCOUNTER → 2022-02-03 | Outpatient (CLI) | payer MEDICARE ==
--- NOTE | 2022-02-03 11:48 | XR ---
EXAMINATION TYPE: XR Hip Complete RT DATE OF EXAM: 02/03/2022 11:43 AM INDICATION: Patient age:Female; 76 years old; Reason for study: [id number] RT HIP PAIN; COMPARISON: None. TECHNIQUE: The right hip was examined in the frontal and lateral projections and a AP pelvis. FINDINGS: Osteophyte formation of the acetabulum and femur. Surgical clips right inguinal region note d. No evidence for acute process, joint dislocation or significant soft tissue swelling. IMPRESSION: No acute process. Mild hip osteoporosis.
== END | disposition home or self-care (01) ==
LOC: RADXRYALE 11:33
PROVIDERS: ATTEND Family Medicine
DX: M81.0 Age-related osteoporosis without current pathological fracture (principal)
CPT/HCPCS: 73502

== ENCOUNTER → 2022-02-17 | Outpatient (CLI) | payer MEDICARE ==
--- NOTE | 2022-02-17 10:58 | BD ---
EXAMINATION TYPE: Axial Bone Density DATE OF EXAM: 02/17/2022 COMPARISON: 06/11/2016 CLINICAL HISTORY: 76 years year old Female. ICD-10 CODE: M8580, M5451 VERTEBROGENIC LOW BACK PAIN Height: 67 Weight: 233.2 FRAX RISK QUESTIONS: Alcohol (3 or more units per day): NO Family History (Parent hip fracture): NO Glucocorticoids (More than 3mos): NO History of Fracture in Adulthood: NO Secondary Osteoporosis: 1. Type 1 Diabetes: NO 2. Hyperthyroidism: NO 3. Menopause before 45: NO 4. Malnutrition: NO 5. Chronic liver disease: FATTY LIVER Rheumatoid Arthritis: NO Current Tobacco Use: NO RISK FACTORS HISTORY OF: Hip Fracture (Right/Left): NO Spine Fracture: NO History of Wrist Fracture: NO Surgery to Spine/Hip(right/left)/Wrist (right/left): LT HIP REPLACED When: 2013 Family History of Osteoporosis: PATERNAL GRANDMOTHER Active: NO Diet low in dairy products/other sources of calcium: NO Postmenopausal woman: YES Take estrogen and/or progesterone medications: NO Lost more than 2 inches in height since high school: YES Frequent falls: NO Poor Health: NO Hyperparathyroidism: NO Adrenal Insufficiency: NO MEDICATIONS: Prednisone or other steroids: NO Thyroid Medications: NO Osteoporosis Medications: NO Additional Medications: NORVASC, BP MEDS, CHOLESTEROL MEDS, VIT D, B COMPLEX, ZINC, MAGNESIUM Additional History: BREAST CA 2015 WITH BILATERAL MASTECTOMY EXAM MEASUREMENTS: Bone mineral densitometry was performed using the [employer] System. Bone mineral density as measured about the Lumbar spine is: ----- L1-L4(G/cm2): 1.431 T Score Values are as follows: ----- L1: 1.2 ----- L2: 1.9 ----- L3: 2.9 ----- L4: 1.8 ----- L1-L4: 2.1 Bone mineral density has: DECREASED -9.7% % since study of: 06/11/2016 Bone mineral density about the R hip (g/cm2):1.098 T Score values are as follows: -----R Neck: 0.4 -----R Total: 1.9 Bone mineral density has: DECREASED -12.4 % since study of: 06/11/2016 FRAX%s: The graph provided illustrates a 6.7% chance for a major osteoporotic fx and a 0.5% chance fo r the hips probability for fx in 10 years time. IMPRESSION: Normal (Values between +1 and -1 indicate normal bone mass). Consider repeating this study in 5 year s or sooner if there is some new clinical indication. NOTE: T-SCORE=SD OF THE YOUNG ADULT MEAN.
== END | disposition home or self-care (01) ==
LOC: RADBDWWP 09:06
PROVIDERS: ATTEND Family Medicine
DX: M85.80 Other specified disorders of bone density and structure, unspecified site (principal); M54.51 Vertebrogenic low back pain; Z85.3 Personal history of malignant neoplasm of breast; Z90.13 Acquired absence of bilateral breasts and nipples
CPT/HCPCS: 77080

== ENCOUNTER → 2022-02-20 | Outpatient (CLI) | payer MEDICARE ==
--- NOTE | 2022-02-21 05:32 | MR ---
EXAMINATION TYPE: MR hip RT wo/w con DATE OF EXAM: 02/20/2022 COMPARISON: HISTORY: Right hip pain, hx breast cancer. CONTRAST: Standard multiplanar, multisequence MRI departmental protocol images were obtained without contrast a nd with 10 mL intravenous Gadavist gadolinium contrast. There is metal artifact from left hip prosthesis. There is narrowing of the right hip joint space. Th ere is mild increased fluid signal at the greater trochanter of the right femur. There is mild right hip joint effusion. The acetabulum is intact. The proximal femur is intact. No focal bone destruction . No evidence of free fluid in the pelvis. No cerebral pelvic mass. The bladder distends smoothly IMPRESSION: Mild right hip joint effusion consistent with some nonspecific synovitis. There is increased fluid signal at the greater trochanter that is suggestive of trochanteric bursitis . No focal bone destruction.
== END | disposition home or self-care (01) ==
LOC: RADMRIMAIN 12:13
PROVIDERS: ATTEND Family Medicine
DX: M25.451 Effusion, right hip (principal); Z85.3 Personal history of malignant neoplasm of breast
CPT/HCPCS: 73723; A9585

== ENCOUNTER → 2022-03-19 | Outpatient (CLI) | payer MEDICARE, BC ==
[2022-03-19 12:05] LABS: African American GFR (CKD) >90 (>60 ml/min/1.73 sqM); Blood Urea Nitrogen 15 mg/dL (7-17); Non-African American GFR(CKD) 84 (>60 ml/min/1.73 sqM)
--- NOTE | 2022-03-19 17:51 | CT ---
EXAMINATION TYPE: CT abdomen w con DATE OF EXAM: 03/19/2022 COMPARISON: 07/15/2021 INDICATION: Adrenal gland cyst follow up DLP: 1444.4 mGycm, Automated exposure control for dose reduction was used. CONTRAST: 70 mL of Isovue 300. Study performed with Oral Contrast TECHNIQUE: Axial images were obtained from above the diaphragm to the pubic rami in the axial plane a t 5 mm thick sections. Reconstructed images are reviewed on the computer in the coronal plane. FINDINGS: Limited CT sections are obtained the lung bases. The lung bases are clear. Bilateral breast prosthe ses are present. CT ABDOMEN: Liver: There is mild fatty infiltration of the liver Spleen: Calcified granuloma within the spleen Pancreas: Normal Adrenal glands: Left adrenal gland measures 1.9 cm, stable from comparison. Gallbladder: Surgically absent Kidneys: No masses are evident. No hydronephrosis is present. Peripelvic cysts appear to be present bilaterally. Delayed images demonstrate no hydronephrosis. Couple cortical renal cysts are present b ilaterally. Aorta: Vascular calcification is within the aorta. Inferior vena cava: Normal. Diverticulosis is within the visualized sigmoid colon. IMPRESSIONS: 1. Stable left adrenal gland. 2. Diverticulosis
== END | disposition home or self-care (01) ==
LOC: RADCTMAIN 10:47
PROVIDERS: ATTEND Family Medicine
DX: K57.30 Diverticulosis of large intestine without perforation or abscess without bleeding (principal); R93.422 Abnormal radiologic findings on diagnostic imaging of left kidney
CPT/HCPCS: 82565; 84520; 74160; 36415; Q9967

== ENCOUNTER → 2023-05-25 | Outpatient (CLI) | payer MEDICARE, BC ==
--- NOTE | 2023-05-25 09:44 | CT ---
EXAMINATION TYPE: CT lower extremity LT wo con DATE OF EXAM: 05/25/2023 COMPARISON: None HISTORY: left hip pain and prosthesis chronic dislocation CT DLP: 1025.7 mGycm Automated exposure control for dose reduction was used. Unenhanced CT of the left hip was performed w ith axial, coronal and sagittal images submitted. Bone and soft tissue window settings are submitted for review. FINDINGS: Total left hip arthroplasty appears to be well seated. Acetabular and femoral components are intact. No evidence for fracture or dislocation. No soft tissue mass identified. No fluid collection seen. IMPRESSION: APPROPRIATE APPEARANCE OF THE PATIENT'S LEFT HIP ARTHROPLASTY.
--- NOTE | 2023-05-25 19:53 | MR ---
EXAMINATION TYPE: MR lumbar spine wo con DATE OF EXAM: 05/25/2023 10:44 AM CLINICAL INDICATION:Female, 77 years old with history of M51.36 disc degeneration; , LUMBAR AND BI-LA T PAIN X5 YEARS COMPARISON: 08/03/2013, CT 03/19/2022 TECHNIQUE: Multi planar, multi sequence imaging was performed utilizing: T1-weighted, T2-weighted, a nd turbo inversion recovery imaging of the lumbar spine. IV Contrast: (None if empty) FINDINGS: Alignment: The lumbar vertebral bodies have preserved heights and alignment. Cord: The conus medullaris and the distal spinal cord appear unremarkable with regards to their signa l intensity and morphology. Bones/Discs: Multilevel disc degeneration changes with osteophyte formation, disc space narrowing, Sc hmorl's nodes, and facet joint arthropathy. Facet joint arthropathy severe extending from L2 to L5. Mild adjacent reactive edema along the L5-S1 vertebrae. Multilevel disc desiccation is present. High T2/T1 signal vertebral body lesion in the L4 vertebrae. Findings suspicious for vertebral body navin ioma. T12-L1: No evidence of significant spinal canal stenosis or neural foraminal stenosis. Posterior oste ophyte noted. L1-L2: No evidence of significant spinal canal stenosis or neural foraminal stenosis. Posterior osteo phyte noted. L2-L3: Disc bulge and facet joint arthropathy result in mild spinal canal and mild to moderate bilate ral neural foraminal stenosis. L3-L4: Disc bulge and facet joint arthropathy result in mild spinal canal and mild bilateral neural f oraminal stenosis. L4-L5: Disc bulge and facet joint arthropathy result in mild spinal canal and mild to moderate bilate ral neural foraminal stenosis. L5-S1: The disc is rounded posterior morphology without significant spinal canal stenosis. Facet join t arthropathy with mild bilateral neural foraminal stenosis. No significant spinal canal or neural foraminal stenosis in the remainder of the visualized levels. Other findings: 13 mm S2 perineural cyst. Bilateral high T2 signal renal cyst. IMPRESSION: 1. No definitive evidence of disc herniation or significant spinal canal stenosis. 2. Moderate to severe disc degeneration with associated osteoarthritic changes. Findings are worse i n the lower lumbar spine with severe facet arthropathy throughout the lower lumbar spine extending fr om L2 to L5. There is complete loss of disc space at L5-S1 with Modic endplate changes and mild react twyla edema.
== END | disposition home or self-care (01) ==
LOC: RADCTMAIN 08:43
PROVIDERS: ATTEND Family Medicine
DX: M47.26 Other spondylosis with radiculopathy, lumbar region (principal); M51.16 Intervertebral disc disorders with radiculopathy, lumbar region; M25.552 Pain in left hip; R60.0 Localized edema; Z96.642 Presence of left artificial hip joint
CPT/HCPCS: 72148

== ENCOUNTER 2024-08-29 15:26 | Emergency (ER) | payer MEDICARE, BC ==
--- NOTE | 2024-08-29 16:12 | ED ---
Fall HPI - General Chief Complaint: Fall Stated Complaint: Fall-Facial injury Time Seen by Provider: 08/29/24 15:42 Source: patient, RN notes reviewed Mode of arrival: EMS Limitations: no limitations - History of Present Illness Initial Comments: This is an 79-year-old female with history including DM, DVT and CVA presenting via EMS for fall with head injury. Patient states she was on the last step of her porch, going down when she had a trip and fall over a dog leash, striking her head on gravel with abrasion around her left eye. Patient denies use of blood thinners, loss of consciousness. Patient endorses pain to the back of her head, described as pressure as well as lower back pain. States tetanus vaccination is not up-to-date. Denies any other significant injury. 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 Witnessed: no Place Fall Occurred: home Loss of Consciousness: none Prolonged Down Time?: no Symptoms Prior to Fall: none Location: head, face, back Severity scale (1-10): 6 Quality: dull Context: tripped/slipped Associated Symptoms: headache - Related Data Home Medications Medication Instructions Recorded Confirmed Losartan Potassium 100 mg PO QAM 07/27/14 09/08/17 Cetirizine HCl [Zyrtec] 10 mg PO DAILY PRN 10/02/14 09/08/17 Krill Oil 500 mg PO DAILY 10/02/14 09/08/17 Magnesium 400 mg PO DAILY 10/02/14 09/08/17 Niacin 500 mg PO DAILY 10/02/14 09/08/17 Zinc Gluconate [Zinc] 50 mg PO DAILY 10/02/14 09/08/17 Dunlap-3 Fatty Acids [Dunlap-3] 1,000 mg PO DAILY 01/07/17 09/08/17 Triamterene-Hctz 37.5-25Mg 1 cap PO DAILY 01/07/17 09/08/17 [Dyazide 37.5-25 Capsule] amLODIPine [Norvasc] 2.5 mg PO DAILY 01/07/17 09/08/17 sitaGLIPtin PHOS/metFORMIN HCL 1 each PO DAILY 01/07/17 09/08/17 [Janumet Xr 50-1,000 mg Tablet] Manganese 50 mg PO DAILY 06/04/17 09/08/17 Vitamin B Complex 1 each PO DAILY 09/02/17 09/08/17 Previous Rx's Medication Instructions Recorded Cephalexin [Keflex] 500 mg PO Q6HR 1 Days #12 cap 08/29/24 Allergies Allergy/AdvReac Type Severity Reaction Status Date / Time lisinopril [From Zestoretic] Allergy Severe Anaphylaxis Verified 09/08/17 10:08 sulfamethoxazole Allergy Severe Anaphylaxis Verified 09/08/17 10:08 [From Bactrim] trimethoprim [From Bactrim] Allergy Severe Anaphylaxis Verified 09/08/17 10:08 acetaminophen [From Mary Esther] Allergy amnesia Verified 09/08/17 10:08 adhesive tape Allergy Rash/Hives Verified 09/08/17 10:08 atenolol [From Tenormin] Allergy Rash/Hives, Verified 09/08/17 10:08 itchiing escitalopram oxalate Allergy syncopal Verified 09/08/17 10:08 [From Lexapro] episode formaldehyde Allergy Dyspnea Verified 09/08/17 10:08 hydrocodone [From Mary Esther] Allergy amnesia Verified 09/08/17 10:08 metformin [From Janumet] Allergy Diarrhea Verified 09/08/17 10:08 metoprolol [From Lopressor] Allergy Rash/Hives Verified 09/08/17 10:08 venlafaxine HCl Allergy Chest Pain Verified 09/08/17 10:08 [From Effexor] nifedipine [From Procardia] AdvReac Severe drop in BP Verified 09/08/17 10:08 simvastatin [From Zocor] AdvReac Unknown Verified 09/08/17 10:08 sitagliptin [From Janumet] AdvReac upset Verified 09/08/17 10:08 stomach pollen Allergy Unknown Uncoded 09/08/17 10:08 tiger gulf shrimp Allergy Rash/Hives Uncoded 09/08/17 10:08 Review of Systems ROS Statement: Those systems with pertinent positive or pertinent negative responses have been documented in the HPI. ROS Other: All systems not noted in ROS Statement are negative. 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 breast cancer, urinary stess incontinence History of Any Multi-Drug Resistant Organisms: MRSA Date of last positivie culture/infection: 05/25/11 MDRO Source:: nasal passage, face Past Surgical History: Appendectomy, Breast Surgery, Cholecystectomy, Heart Catheterization, Joint Replacement, Tubal Ligation Additional Past Surgical History / Comment(s): [place] vein stripping, cyst rt breast-benign, Right breast u/s core-malignant 06/2016, left hip replacement, [place] mastectomy, with [place] breast expanders Past Anesthesia/Blood Transfusion Reactions: Motion Sickness Additional Past Anesthesia/Blood Transfusion Reaction / Comment(s): motion sickness as child. "blood pressure drops during anesthesia" Past Psychological History: Anxiety, Depression Past Alcohol Use History: Occasional Past Drug Use History: None Reported - Past Family History Father Family Medical History: Pulmonary Embolus Mother Family Medical History: Cancer General Exam Limitations: no limitations General appearance: alert, in no apparent distress Head exam: Present: normocephalic, other (Positive significant left periorbital TTP especially lateral superior and inferior aspects without obvious deformity, crepitus. Negative dodge signs). Absent: atraumatic (Positive left lateral periorbital abrasions with two 1-3 cm lacerations around eye with dried blood noted.), normal inspection Eye exam: Present: normal appearance, PERRL, EOMI (EOM intact in all hoover bilaterally), other (Negative raccoon eyes). Absent: scleral icterus, conjunctival injection, periorbital swelling Pupils: Present: normal accommodation ENT exam: Present: normal exam, normal oropharynx, mucous membranes moist, TM's normal bilaterally (Negative hemotympanum) Neck exam: Present: normal inspection. Absent: tenderness, meningismus, lymphadenopathy Respiratory exam: Present: normal lung sounds bilaterally, chest wall tenderness (Positive right posterior axillary 7th/8th rib point TTP without obvious crepitus). Absent: respiratory distress, wheezes, rales, rhonchi, stridor, accessory muscle use, decreased breath sounds, prolonged expiratory Cardiovascular Exam: Present: regular rate, normal rhythm, normal heart sounds. Absent: systolic murmur, diastolic murmur, rubs, gallop, clicks GI/Abdominal exam: Present: soft, normal bowel sounds. Absent: distended, tenderness, guarding, rebound, rigid Extremities exam: Present: normal inspection, full ROM, normal capillary refill, other (Positive minor abrasion noted on left knee without tenderness). Absent: tenderness, pedal edema, joint swelling, calf tenderness Back exam: Present: normal inspection, tenderness (Positive right back/flank TTP along right ilium) Neurological exam: Present: alert, oriented X3, CN II-XII intact Psychiatric exam: Present: normal affect, normal mood Skin exam: Present: warm, dry, intact, normal color. Absent: rash Course Vital Signs 08/29/24 08/29/24 08/29/24 15:36 18:55 20:28 Temperature 98.7 F 98.0 F 98.2 F Pulse Rate 81 71 71 Respiratory 20 20 16 Rate Blood Pressure 149/77 169/67 157/75 O2 Sat by Pulse 95 97 97 Oximetry Medical Decision Making - Medical Decision Making Was pt. sent in by a medical professional or institution (, PA, [employer]ACQU[employer] C[employer]ER, urgent care, hospital, or usp...) When possible be specific @ -No Did you speak to anyone other than the patient for history (EMS, parent, family, police, friend...)? What history was obtained from this source @ -No Did you review nursing and triage notes (agree or disagree)? Why? @ -I reviewed and agree with nursing and triage notes Were old charts reviewed (outside hosp., previous admission, EMS record, old EKG, old radiological studies, urgent care reports/EKG's, usp records)? Report findings @ -No old charts were reviewed Differential Diagnosis (chest pain, altered mental status, abdominal pain women, abdominal pain men, vaginal bleeding, weakness, fever, dyspnea, syncope, headache, dizziness, GI bleed, back pain, seizure, CVA, palpatations, mental health, musculoskeletal)? @ -Differential Musculoskeletal Muscular strain, contusion, ligament sprain, fracture, arthritis, septic arthritis, bursitis, cellulitis, muscle spasm, nerve compression, DVT, arterial occlusion, herpes zoster, electrolyte abnormality, tumor.... This is not meant to be in all inclusive list EKG interpreted by me (3pts min.). @ -Not done X-rays interpreted by me (1pt min.). @ - Hip/pelvic x-ray shows hip arthroplasty with intact hardware in appropriate alignment with no acute fracture. Right rib x-ray shows no obvious displaced rib fracture and clear lungs. CT interpreted by me (1pt min.). @ -CT of the brain/C-spine and face reveals no acute intracranial process, no evidence of cervical spine fracture with mild multilevel DDD and left cheek edema with no evidence of fracture. Dural based lesion along falx likely a partially calcified meningioma. U/S interpreted by me (1pt. min.). @ -None done What testing was considered but not performed or refused? (CT, X-rays, U/S, labs)? Why? @ -None What meds were considered but not given or refused? Why? @ -None Did you discuss the management of the patient with other professionals (professionals i.e. , PA, [employer], lab, RT, psych nurse, older adult social work specialist, pipe assembly worker, teacher, safety patrol officer, case packer)? Give summary @ -No Was smoking cessation discussed for >3mins.? @ -No Was critical care preformed (if so, how long)? @ -No Were there social determinants of health that impacted care today? How? (Homelessness, low income, unemployed, alcoholism, drug addiction, transportation, low edu. Level, literacy, decrease access to med. care, correction, rehab)? @ -No Was there de-escalation of care discussed even if they declined (Discuss DNR or withdrawal of care, Hospice)? DNR status @ -No What co-morbidities impacted this encounter? (DM, HTN, Smoking, COPD, CAD, Cancer, CVA, ARF, Chemo, Hep., AIDS, mental health diagnosis, sleep apnea, morbid obesity)? @ -None Was patient admitted / discharged? Hospital course, mention meds given and rout e, prescriptions, significant lab abnormalities, going to OR and other pertinent info. @ -CT of the brain/C-spine and face reveals no acute intracranial process, no evidence of cervical spine fracture with mild multilevel DDD and left cheek edema with no evidence of fracture. Dural based lesion along falx likely a partially calcified meningioma. Hip/pelvic x-ray shows hip arthroplasty with intact hardware in appropriate alignment with no acute fracture. Right rib x- ray shows no obvious displaced rib fracture and clear lungs. Left periocular wound care provided and patient provided IM tetanus and p.o. Keflex with prophylactic Keflex regimen sent to patient's pharmacy. Wound care instructions provided and advised follow-up with PCP in the next 24-48 hours. Return to ER if experiencing worsening headache, dizziness, altered mental status, vision changes, nausea/vomiting. Discussed patient with Dr. Hightower. Undiagnosed new problem with uncertain prognosis? @ -No Drug Therapy requiring intensive monitoring for toxicity (Heparin, Nitro, Insulin, Cardizem)? @ -No Were any procedures done? @ -No Diagnosis/symptom? @ -Mild concussion without loss of consciousness following fall, facial abrasion Acute, or Chronic, or Acute on Chronic? @ -Acute Uncomplicated (without systemic symptoms) or Complicated (systemic symptoms)? @ -Uncomplicated Side effects of treatment? @ -No Exacerbation, Progression, or Severe Exacerbation? @ -No Poses a threat to life or bodily function? How? (Chest pain, [place], SD, pneumonia, PE, COPD, DKA, ARF, appy, cholecystitis, CVA, Diverticulitis, Homicidal, Suicidal, threat to staff... and all critical care pts) @ -No Disposition Clinical Impression: Fall, Facial abrasion Disposition: HOME SELF-CARE Condition: Fair Instructions (If sedation given, give patient instructions): Fall Prevention for Older Adults (ED), Acute Wound Care (ED) Additional Instructions: Keep abrasion clean with antibacterial soap and water along with application of antibiotic ointment and dressing change at least twice daily. Return to ER if experiencing worsening headache, dizziness, vision changes, altered level consciousness, nausea/vomiting. Prescriptions: Cephalexin [Keflex] 500 mg PO Q6HR 1 Days #12 cap Is patient prescribed a controlled substance at d/c from ED?: No Referrals: Ander Brown DO [Primary Care Provider] - 1-2 days Time of Disposition: 20:00
[2024-08-29] MEDS: LIDOCAINE 1%-EPI 1:100,000 20 ML VIAL SQ STA (17:02)
--- NOTE | 2024-08-29 17:09 | CT ---
EXAMINATION TYPE: CT brain cspine wo con, CT facial bones wo con DATE OF EXAM: 08/29/2024 4:55 PM COMPARISON: None. CLINICAL INDICATION: Female, 78 years old with history of pain; tripped over dog leash/ left eye inju ry (accession [id number]), tripped over dog leash/left eye injury (accession [id number]), pain TECHNIQUE: Brain: Multiple axial CT images of the brain were obtained without IV contrast. Cspine: Axial CT images from the skull base to the inferior aspect of T2 we obtained without intraven ous contrast. Coronal and sagittal reformatted images were also reviewed. Facial: Axial imaging of the facial structures with sagittal and coronal reformats. CT DLP: combined 1102.7 mGycm, Automated exposure control for dose reduction was used. FINDINGS: Brain: Extra-axial spaces: No abnormal extra-axial fluid collections. Left Falx partially calcified lesion p osteriorly measuring 28 x 16 mm is present attached along the dura.. Ventricular system: Within normal limits Cerebral parenchyma: No acute intraparenchymal hemorrhage or mass effect. The gonzales-white junction is well differentiated. Cerebellum: Unremarkable. Mass effect: No evidence of midline shift. Intracranial vasculature: unremarkable Soft tissues: Soft tissue edema around the left arm at Calvarium/osseous structures: No depressed skull fracture. Paranasal sinuses and mastoid air cells: Clear. Visualized orbits: Orbital contents are intact. Cervical spine: Fracture: None. Osseous structures: Multilevel degenerative disc disease changes with endplate spurring and disc oste ophyte complex's. Nuclear opacifications present. Vertebral alignment: Within normal limits. Spinal canal/Neural Foramina: No evidence of significant spinal canal narrowing. No evidence for sign ificant neural foraminal stenosis. Neck soft tissues: Prevertebral soft tissues are within normal limits. Other: The airway is patent. The lung apices are clear. Facial: Soft tissue edema on the left cheek. There is no evidence of fracture, subluxation, dislocati on. The orbital contents are unremarkable.The temporal-mandibular joints appear symmetric. The visual ized portion of the paranasal sinuses appear clear. IMPRESSION: 1. No acute intracranial process. 2. Left cheek edema. No evidence for fracture. 3. No evidence of cervical spine fracture. 4. Mild multilevel degenerative disc disease. 5. Dural-based lesion along the falx most compatible with partially calcified meningioma. [facility], , 08/29/2024 5:07 PM
[2024-08-29] MEDS: CEPHALEXIN 500 MG CAP PO STA (18:46)
[2024-08-29] MEDS: DIPH,PERTUS(ACELL)TETVAC-LF 0.5 ML VIAL IM ONE (18:47)
[2024-08-29 18:56] VITALS: PULSE 71
--- NOTE | 2024-08-29 19:55 | XR ---
EXAMINATION TYPE: XR Hip RT and AP Pelvis DATE OF EXAM: 08/29/2024 7:26 PM COMPARISON: None. CLINICAL INDICATION: Female, 78 years old with history of fall, pain TECHNIQUE: XR Hip RT and AP Pelvis; hip was examined in the frontal and lateral projections and a AP pelvis. FINDINGS: Post left arthroplasty changes, hardware is intact, alignment is appropriate. No evidence o f fracture. No evidence of any acute osseous pathology or joint dislocation. Hip moderate right hip o steoporosis with joint space narrowing and osteophyte formation. IMPRESSION: Hip arthroplasty with hardware intact and in appropriate alignment. No acute fracture. [facility], , 08/29/2024 7:53 PM
--- NOTE | 2024-08-29 20:03 | XR ---
EXAMINATION TYPE: XR ribs RT w pa chest xray DATE OF EXAM: 08/29/2024 7:25 PM COMPARISON: 08/14/2014. There CLINICAL INDICATION: Female, 78 years old with history of Fall, left periorbital wound/TTP, R lateral rib; PHH, pain TECHNIQUE: XR ribs RT w pa chest xray; Frontal and oblique views of the ribs with frontal chest radio graph. FINDINGS: Costochondral junction calcifications in the evaluation. The ribs have a normal appearance. No evidence of fracture. Overall, the lungs are clear. The cardiac silhouette is normal in size. The remaining osseous structures are intact. Axillary surgical clips. IMPRESSION: Limited evaluation no obvious displaced rib fracture. Costochondral junction calcifications limit simon luation. [facility], , 08/29/2024 8:00 PM
[2024-08-29 20:56] VITALS: BP 157/75; RESP 16; TEMP 98.2
== END 2024-08-29 20:28 | disposition home or self-care (01) ==
LOC: EC 15:26
DX: S00.81XA Abrasion of other part of head, initial encounter (principal); E11.9 Type 2 diabetes mellitus without complications; Z86.718 Personal history of other venous thrombosis and embolism; Z79.84 Long term (current) use of oral hypoglycemic drugs; Z88.1 Allergy status to other antibiotic agents; Z88.2 Allergy status to sulfonamides; Z88.5 Allergy status to narcotic agent; Z91.09 Other allergy status, other than to drugs and biological substances; Z88.8 Allergy status to other drugs, medicaments and biological substances; Z23 Encounter for immunization; W18.30XA Fall on same level, unspecified, initial encounter
CPT/HCPCS: 70450; 70486; 72125; 73502; 90471; 90715; 99284